=== PATIENT | female | born 1935 | race Caucasian/White ===

== ENCOUNTER 2020-04-27 09:37 | Outpatient (CLI) | payer MEDICARE, SELFPAY ==
--- NOTE | 2020-04-27 09:49 | ECHO_ITS ---
Patient Info Name: Janneth Sheldon Age: 84 years : 1935 Gender: Female Ht: 65 in Wt: 250 lbs BSA: 2.34 m2 HR: 91 bpm BP: 139 / 75 mmHg Technical Quality: Good Exam Date: 04/27/2020 10:04 AM Exam Location: [facility] Patient Status: Outpatient Admit Date: 04/27/2020 Staff Ordering Physician: Ziyad Mccauley MD Clinical Documentation Clerk: Jayde Rivera RDCS Attending Provider: Ziyad Mccauley MD Referring Physician: Parisa JHAVERI; Exam Type: CA echo doppler color flow Study Info Indications - heart failure Complete two-dimensional, color flow and Doppler transthoracic echocardiogram is performed. Summary 1. Complete two-dimensional, color flow and Doppler transthoracic echocardiogram is performed. 2. Left ventricular chamber dimension is normal. 3. Left ventricular systolic function is normal, estimated at 60-65%. 4. The left ventricular diastolic function is grade I diastolic dysfunction. 5. E/e' 12 is mildly elevated. 6. Left atrial chamber dimension is mildly enlarged. 7. There is moderate aortic valve sclerosis. 8. There is trace aortic valve regurgitation. 9. The mitral valve has moderately calcified annulus. 10. There is trace tricuspid valve regurgitation. 11. No pulmonary hypertension, estimated pulmonary arterial systolic pressure is 33 mmHg. 12. There is trace pulmonic regurgitation. 13. Small atheroma in anterior and posterior aortic root. 14. There is trivial pericardial effusion. Left Ventricle E/e' 12 is mildly elevated. Left ventricular chamber dimension is normal. Left ventricular systolic function is normal, estimated at 60-65%. The left ventricular diastolic function is grade I diastolic dysfunction. Right Ventricle Right ventricular chamber dimension is normal. Right ventricular systolic function is normal. Left Atria Left atrial chamber dimension is mildly enlarged. Right Atria Right atrial chamber dimension is normal. Aortic Valve The aortic valve is trileaflet. There is moderate aortic valve sclerosis. There is no aortic valve stenosis. There is trace aortic valve regurgitation. Pulmonic Valve There is trace pulmonic regurgitation. Mitral Valve The mitral valve has moderately calcified annulus. There is no mitral valve stenosis. There is no mitral valve regurgitation. Tricuspid Valve There is trace tricuspid valve regurgitation. No pulmonary hypertension, estimated pulmonary arterial systolic pressure is 33 mmHg. Pericardium/Pleural There is trivial pericardial effusion. Inferior Vena Cava Normal inferior vena cava with >50% collapse upon inspiration consistent with normal right atrial pressure, 5 mmHg. Aorta Small atheroma in anterior and posterior aortic root. The aortic root size at the sinus of Valsalva is normal. Left Ventricular Outflow Tract Name Value Normal LVOT 2D LVOT Diameter 2.1 cm LVOT Doppler LVOT Peak Gradient 5 mmHg LVOT Mean Gradient 3 mmHg LVOT VTI 33 cm LVOT VTI/AV VTI Ratio 0.5
== END 2020-04-27 09:38 | disposition home or self-care (01) ==
PROVIDERS: PCP Family Medicine; Visit Provider Family Medicine
DX: I50.9 Heart failure, unspecified (principal); I51.7 Cardiomegaly; I25.10 Atherosclerotic heart disease of native coronary artery without angina pectoris
CPT/HCPCS: 93306

== ENCOUNTER → 2020-05-02 16:35 | Outpatient (CLI) | payer MEDICARE, SELFPAY ==
--- NOTE | ~2020-05-02 | MM_ITS ---
EXAMINATION: MM screening ej BI w henrik HISTORY: Screening TECHNIQUE: Craniocaudal and mediolateral oblique 3-D tomosynthesis images were obtained and synthetic 2-D images were generated. CAD analysis was submitted and interpreted. COMPARISON: Comparison to multiple prior studies sequentially, with oldest reviewed study dated 06/20. BREAST PARENCHYMAL COMPOSITION: There are scattered areas of fibroglandular density. FINDINGS: There are developing calcifications in the upper outer quadrant of the left breast. The rig ht breast is stable without evidence for malignancy. IMPRESSION: 1. Developing nonspecific calcifications upper outer quadrant of the left breast. 2. Magnification views are recommended. BI-RADS Category 0: Incomplete: Needs additional imaging evaluation. Reviewed, dictated and finalized at location A. IMPRESSION: 1. Developing nonspecific calcifications upper outer quadrant of the left breas t. 2. Magnification views are recommended. BI-RADS Category 0: Incomplete: Needs additional imaging evaluation.
== END ==
PROVIDERS: PCP Family Medicine; Visit Provider Family Medicine
DX: Z12.31 Encounter for screening mammogram for malignant neoplasm of breast (principal)
CPT/HCPCS: 77063; 77067

== ENCOUNTER → 2020-05-22 09:04 | Outpatient (CLI) | payer MEDICARE, SELFPAY ==
--- NOTE | ~2020-05-22 | MM_ITS ---
EXAMINATION: MM diagnostic mammo unilat LT HISTORY: Follow-up left breast calcifications TECHNIQUE: Additional 3-D tomosynthesis images of the left breast were performed and synthetic 2-D im ages were generated. CAD analysis was submitted and interpreted. COMPARISON: Comparison to multiple prior studies sequentially, with oldest reviewed study dated 06/20. BREAST PARENCHYMAL COMPOSITION: Breast composed of scattered areas of fibroglandular density. FINDINGS: Scattered coarse calcifications upper outer quadrant of the left breast are likely benign. No suspicious masses or architectural distortion. IMPRESSION: 1. Probable benign left breast masses. 2. Recommend 6 month follow-up diagnostic left mammogram. BI-RADS category 3, probably benign findings. Reviewed, dictated and finalized at location A. ARY CARE COORDINATOR
== END ==
PROVIDERS: PCP Family Medicine; Visit Provider Family Medicine
DX: R92.8 Other abnormal and inconclusive findings on diagnostic imaging of breast (principal)
CPT/HCPCS: 77065

== ENCOUNTER 2020-05-22 10:56 | Emergency (ER) | payer MEDICARE, SELFPAY ==
--- NOTE | ~2020-05-22 | CT_ITS ---
EXAMINATION: CT brain wo con EXAM DATE: 05/22/2020 11:37 INDICATION: head injury . TECHNIQUE: Spiral CT of the head was performed without contrast. Axial, coronal and sagittal images were reviewed. The dose-length product (DLP) for this examination was 605.33 mGy-cm. The exposure w as tailored according to patient size, and iterative reconstruction (ASIR) was used as additional dos e reduction technique. Comparison is made to prior examination from 10/18/2008. FINDINGS: There is no acute intraparenchymal hemorrhage. No evidence of intraparenchymal brain mass lesion. No evidence of acute infarction. Please note that initial head CT has limited sensitivity f or small or acute infarctions. There is mild periventricular and subcortical hypodensity, nonspecific but probably related to small vessel ischemic disease. There is moderate prominence of the sulci a nd ventricles related to cerebral atrophy. There is intracranial carotid arteriosclerosis. There a re no extra-axial collections. There is no mass effect or midline shift. The orbits are unremarkabl e. There is moderate size hematoma at the left brow. The visualized sinuses and mastoid air cells ar e well aerated. IMPRESSION: 1. No acute intracranial findings. 2. Chronic age related findings. 3. Left brow contusion/hematoma. Reviewed, dictated and finalized at location B. NICAL SALES REPRESENTATIVES
--- NOTE | ~2020-05-22 | XR_ITS ---
EXAMINATION: XR knee LT min 4V EXAM DATE: 05/22/2020 11:45 INDICATION: left knee pain, fall TECHNIQUE: Left knee frontal, crosstable lateral, orthogonal oblique projections for interpretation. Comparison is made to prior examination from 10/18/2008. FINDINGS: No evidence osteochondral defect or joint body in the left knee joint. There is moderate primary osteoarthritis. There are no acute fractures or dislocations identified. There is no subcuta neous gas. Small joint effusion. There are no radiopaque foreign bodies. IMPRESSION: 1. XR knee LT min 4V exam without acute osseous findings. 2. Moderate osteoarthritis. 3. Small joint effusion. Reviewed, dictated and finalized at location B. GATHERER
--- NOTE | ~2020-05-22 | CT_ITS ---
EXAMINATION: CT facial & cervical spine wo EXAM DATE: 05/22/2020 11:37 INDICATION: head injury, black eye . TECHNIQUE: Spiral CT of the facial bones was acquired in the axial plane. Coronal reformatted images were also reviewed. Spiral CT of the cervical spine was performed without contrast. Axial images we re reviewed. Coronal and sagittal reformatted images were also reviewed. The dose-length product (DL P) for this examination was 442.45 mGy-cm. The exposure was tailored according to patient size, and iterative reconstruction (ASIR) was used as additional dose reduction technique. Comparison is made t o prior examination from 10/18/2008. FINDINGS: FACIAL CT: There are no displaced acute nasal bone fractures. The mandible, sinuses and orbits are i ntact. The orbits, globes and extraocular muscles are unremarkable. The visualized sinuses and ma stoid air cells are well aerated. There is moderate-sized hematoma/contusion over the left supraorb ital region, brow. CERVICAL CT: There is no evidence of acute cervical fracture. The odontoid process is intact. Pre-d ens space is normal. Prevertebral soft tissue is normal. There are no soft tissue abnormalities kai ntified. There is no disc space widening or traumatic vertebral body subluxation suspected. There i s moderate lower cervical disc disease and some advanced cervical arthropathy. A detailed level by eli sun evaluation of spondylosis can be added as addendum if requested. IMPRESSION: 1. No acute facial or cervical fracture. 2. Left brow scalp contusion/hematoma. Reviewed, dictated and finalized at location B. RUCTOR FLYING
--- NOTE | ~2020-05-22 | CT_ITS ---
EXAMINATION: CT thoracic lumbar wo con EXAM DATE: 05/22/2020 11:37 INDICATION: mid-low back pain, fall. TECHNIQUE: Spiral CT thoracolumbar spine was performed without contrast. Axial, coronal and sagittal images of the thoracic spine were reviewed. Axial, coronal and sagittal images of the lumbar spine we re reviewed. The dose-length product (DLP) for this examination was 2106.40 mGy-cm. The exposure was tailored according to patient size (auto mA exposure control), and iterative reconstruction (ASIR) w as used as additional dose reduction technique. There is no prior study for comparison. FINDINGS: THORACIC SPINE: Moderate mid and lower thoracic disc disease and moderate sized bridging endplate ost eophytes. There are no acute fractures identified. The vertebral bodies are aligned in the AP dimensi on. Vertebral body heights relatively well-maintained. Paraspinal soft tissue is unremarkable. LUMBAR SPINE: Sacroiliac joints, sacrum intact. Moderate aortic arterial sclerosis. No retroperitonea l lymphadenopathy or hydronephrosis. There is no evidence of acute lumbar fracture. There is no dis c space widening or traumatic vertebral body subluxation suspected. There is 2-3 mm degenerative ante rolisthesis L3 on L4. Paraspinal soft tissue is unremarkable. Moderate lower lumbar disc disease and facet arthropathy. A detailed level by level evaluation of spondylosis can be added as addendum if r equested. IMPRESSION: 1. No acute thoracolumbar findings. 2. Spondylosis. Reviewed, dictated and finalized at location B. NG TECHNICIAN
--- NOTE | ~2020-05-22 | XR_ITS ---
EXAMINATION: XR hip LT min 3V w AP pelvis EXAM DATE: 05/22/2020 11:45 INDICATION: Initial encounter following injury, with pain of the pelvis, left hip. TECHNIQUE: Left hip frontal, crosstable lateral and 'frog-leg' projections for interpretation. Fronta l projection pelvis. There is no prior study for comparison. FINDINGS: Smooth left hip femoral head contour, no radiographic evidence of avascular necrosis. Ther e is mild symmetric bilateral hip primary osteoarthritis. There are no acute fractures or dislocation s identified. There is no subcutaneous gas. The soft tissue is unremarkable. There are no radiopa que foreign bodies. IMPRESSION: 1. Pelvic, left hip exam without acute osseous findings. Reviewed, dictated and finalized at location B. MATOR AND DRAFTER SUPERVISOR
[2020-05-22 11:01] VITALS: BP 153/72; PULSE 84; RESP 16; TEMP 36; O2SAT 99
[2020-05-22 11:12] VITALS: O2SAT 99
--- NOTE | 2020-05-22 11:15 | ED.HEATRA ---
HPI - Head Injury General Chief complaint: Head Injury Stated complaint: Head Injury, Fall Time Seen by Provider: 05/22/20 11:02 Source: patient Mode of arrival: wheelchair Limitations: no limitations History of Present Illness HPI Narrative: This is an 84-year-old female that presents the emergency department after a fall today with head injury. Reports she tripped over a rug and fell forward onto tile. Reports hitting her head. Denies loss of consciousness. Reports a black eye and left leg pain. Reports she was able to walk after the fall, but with some pain in the left leg. Also reports neck and back pain. Denies vision changes, chest pain, vomiting, numbness, or weakness. Related Data Home Medications Medication Instructions Recorded Confirmed aspirin 81 mg tablet,delayed 81 mg PO DAILY 06/15/19 release solifenacin 10 mg tablet 10 mg PO DAILY 06/15/19 calcium carbonate 600 mg calcium 600 mg PO DAILY 10/19/19 (1,500 mg) tablet cholecalciferol (vitamin D3) 25 25 mcg PO DAILY 10/19/19 mcg (1,000 unit) capsule naproxen sodium 220 mg capsule 440 mg PO DAILY cap 10/19/19 Allergies Allergy/AdvReac Type Severity Reaction Status Date / Time Penicillins Allergy Unknown itching Verified 04/04/20 10:23 Review of Systems Review of Systems: Narrative: CONSTITUTIONAL: Denies fever EYES: Denies visual changes CARDIOVASCULAR: Denies chest pain RESPIRATORY: Denies dyspnea. GASTROINTESTINAL: Denies vomiting MUSCULOSKELETAL: Reports back pain, joint pain, and myalgia. NEUROLOGIC: Denies headache, numbness, or weakness. All systems reviewed & are unremarkable except as noted in HPI and below [facility] Past Medical History Medical History (Updated 05/22/20 @ 12:16 by Praveena Beebe PA-C) Aortic stenosis Essential (primary) hypertension Lymphedema Mixed hyperlipidemia Surgical History Surgical History Cataract extraction status BOTH EYES JUN 2019-RIGHT MAY 2019- LEFT H/O: hysterectomy History of appendectomy Family History Family History Father Acute myocardial infarction, Onset Age: 73 Mother Family history of malignant neoplasm of breast in first degree relative, Onset Age: 73 Social History Social History Smoking status: Never smoker Alcohol intake: never Exam Narrative: Exam Narrative: GENERAL: Elderly, well-nourished, and in no acute distress. HEAD: Normocephalic. Ecchymosis of the left upper and lower eyelid EYES: PERRLA and EOMI. ENT: Nares clear, no rhinorrhea or epistaxis. Mucous membranes moist. Oropharynx without tonsillar hypertrophy exudate or other lesions. Bilateral TMs pearly mckeon non-bulging NECK: Supple. No adenopathy or masses. CHEST: Clear to auscultation. No respiratory distress. No wheezes rales or rhonchi HEART: Regular rate and rhythm. No murmur heard. Normal peripheral pulses. ABDOMEN: Soft, nontender, nondistended, normal active bowel sounds. BACK: Tender to palpation of midline thoracic and lumbar spine EXTREMITIES: Normal range of motion. No edema or obvious deformity. SKIN: Warm, dry, no rash. NEURO: No focal deficits. Alert and oriented x3. Cranial nerves II through XII grossly intact PSYCH: Normal mood and affect Course Vital Signs Vital signs: Vital Signs Temperature 96.8 F L 05/22/20 11:01 Pulse Rate 84 05/22/20 11:01 Respiratory Rate 16 05/22/20 11:01 Blood Pressure 153/72 H 05/22/20 11:01 Pulse Oximetry 99 05/22/20 11:01 Temperature 96.8 F L 05/22/20 11:01 Pulse Rate 84 05/22/20 11:01 Respiratory Rate 16 05/22/20 11:01 Blood Pressure 153/72 H 05/22/20 11:01 Pulse Oximetry 99 05/22/20 11:12 MDM - Head Injury MDM Narrative Medical decision making narrative: Patient presents to the emergency department for fall today with he
[2020-05-22 12:54] VITALS: BP 140/82; PULSE 80; RESP 19; TEMP 36.7; O2SAT 100
== END 2020-05-22 12:55 | disposition home or self-care (01) ==
PROVIDERS: Emergency Provider Emergency Medicine; PCP Family Medicine
DX: S83.92XA Sprain of unspecified site of left knee, initial encounter (principal); S09.90XA Unspecified injury of head, initial encounter; I10 Essential (primary) hypertension; E78.5 Hyperlipidemia, unspecified; I35.0 Nonrheumatic aortic (valve) stenosis; W01.0XXA Fall on same level from slipping, tripping and stumbling without subsequent striking against object, initial encounter
CPT/HCPCS: 70450; 70486; 72125; 72128; 72131; 73502; 73564; 99284

== ENCOUNTER 2020-06-03 16:09 | Emergency (ER) | payer MEDICARE, SELFPAY ==
--- NOTE | ~2020-06-03 | XR_ITS ---
EXAMINATION: XR hand LT min 3V EXAM DATE: 06/03/2020 16:29 INDICATION: Fall, several days ago, injury ing lt hand bruising . Initial encounter. TECHNIQUE: Left hand frontal, lateral and oblique projections obtained and reviewed. There is no terri or study for comparison. FINDINGS: Left metacarpal bones are unremarkable. There is severe 1st carpometacarpal and 3rd distal interphalangeal primary osteoarthritis. There are no acute fractures or dislocations identified. Th ere is no subcutaneous gas. The soft tissue is unremarkable. There are no radiopaque foreign jenny s. IMPRESSION: 1. Left hand exam without acute osseous findings. Reviewed, dictated and finalized at location A. ESSOR OF FORESTRY
[2020-06-03 16:21] VITALS: BP 151/66; PULSE 83; RESP 18; TEMP 36.3; O2SAT 99
[2020-06-03 16:23] VITALS: BP 151/66; PULSE 83; RESP 18; TEMP 36.3; O2SAT 99
--- NOTE | 2020-06-03 16:51 | ED.UPPEXIN ---
HPI - Extremity Injury (Upper) General Chief Complaint: Extremity Injury, Upper Stated Complaint: Left Hand Pain Time Seen by Provider: 06/03/20 16:35 Source: patient and RN notes reviewed Mode of arrival: ambulatory Limitations: no limitations History of Present Illness HPI narrative: Patient presents today complaining of pain to her left hand. She initially fell on 05/22/2020 after a trip on a rug and fall onto the tile. She was subsequently seen in the ER at [facility] where multiple CT scans and x-rays were performed, and were all negative. At that time, she did not have complaints of the hand injury and no imaging was done on this part of her body. She now states she has been having pain in this area for the past 3 to 4 days, but denies any additional injury since the initial fall on 05/22/2020. Denies numbness or tingling in the arm or hand. States she takes Aleve daily for her arthritis pain. Denies pain at rest, but states her pain increases to 10/10 when she uses her hand to take off her clothing or if she spreads her fingers wide. MD complaint: injury to: hand Related Data Home Medications Medication Instructions Recorded Confirmed aspirin 81 mg tablet,delayed 81 mg PO DAILY 06/15/19 06/03/20 release solifenacin 10 mg tablet 10 mg PO DAILY 06/15/19 06/03/20 calcium carbonate 600 mg calcium 600 mg PO DAILY 10/19/19 06/03/20 (1,500 mg) tablet cholecalciferol (vitamin D3) 25 25 mcg PO DAILY 10/19/19 06/03/20 mcg (1,000 unit) capsule naproxen sodium 220 mg capsule 440 mg PO DAILY cap 10/19/19 06/03/20 Allergies Allergy/AdvReac Type Severity Reaction Status Date / Time Penicillins Allergy Unknown itching Verified 06/03/20 16:21 Review of Systems Review of Systems: Narrative: CONSTITUTIONAL: Denies body aches, fever, chills, or sweats. EYES: Denies visual changes, redness, or discharge. ENT: Denies rhinorrhea, congestion, sore throat, or otalgia. CARDIOVASCULAR: Denies chest pain, palpitations, or edema. RESPIRATORY: Denies cough or dyspnea. GASTROINTESTINAL: Denies abdominal pain, nausea, vomiting, or diarrhea. GENITOURINARY: Denies dysuria or hematuria. SKIN: Denies rash, itching, or wounds. MUSCULOSKELETAL: Denies back pain, or myalgia. + Left hand injury NEUROLOGIC: Denies headache, numbness, tingling, or weakness. PSYCH: Denies depression or anxiety. [facility] Past Medical History Medical History (Updated 06/03/20 @ 16:52 by Gill Valentine, [facility], ) Aortic stenosis Essential (primary) hypertension Lymphedema Mixed hyperlipidemia Surgical History Surgical History Cataract extraction status BOTH EYES JUN 2019-RIGHT MAY 2019- LEFT H/O: hysterectomy History of appendectomy Family History Family History Father Acute myocardial infarction, Onset Age: 73 Mother Family history of malignant neoplasm of breast in first degree relative, Onset Age: 73 Social History Social History Smoking status: Never smoker Alcohol intake: never Comments At time of signature, I have reviewed and agree with nursing past medical, surgical, social and family history unless otherwise noted. Please see nursing chart for further information. There is no relevant family history pertinent to the presenting complaint Exam Narrative: Exam Narrative: GENERAL: Well-appearing, well-nourished, and in no acute distress. HEAD: Normocephalic, atraumatic. EYES: EOMI. No redness or drainage. Conjunctivae normal. ENT: Mucous membranes pink and moist. NECK: Normal AROM. CHEST: No respiratory distress. EXTREMITIES: Left hand: Healing ecchymosis to the bases of fingers 3 through 5 with tenderness to the same area. No edema noted. Distal sensation intact. Capillary refill normal. Radial pulse normal. Full range of mot
== END 2020-06-03 16:54 | disposition home or self-care (01) ==
PROVIDERS: Emergency Provider Nurse Practitioner; PCP Family Medicine
DX: S60.222A Contusion of left hand, initial encounter (principal); X58.XXXA Exposure to other specified factors, initial encounter; I10 Essential (primary) hypertension; E78.2 Mixed hyperlipidemia; I35.0 Nonrheumatic aortic (valve) stenosis; Z79.82 Long term (current) use of aspirin
CPT/HCPCS: 73130; 99213; G0463

== ENCOUNTER 2020-10-01 09:26 | Outpatient (CLI) | payer MEDICARE, SELFPAY | END 2020-10-01 09:27 | LOC: ANHCOVIDVC 09:26 | PROVIDERS: PCP Family Medicine | DX: Z23 Encounter for immunization (principal) | CPT/HCPCS: 0001A; 91300 ==

== ENCOUNTER 2020-10-22 09:26 | Outpatient (CLI) | payer MEDICARE, SELFPAY | END 2020-10-22 09:27 | disposition home or self-care (01) | LOC: ANHCOVIDVC 09:26 | PROVIDERS: PCP Family Medicine | DX: Z23 Encounter for immunization (principal) | CPT/HCPCS: 0002A; 91300 ==

== ENCOUNTER → 2020-10-27 00:54 | Outpatient (CLI) | payer MEDICARE, SELFPAY ==
[2020-10-27 18:53] LABS: SARS-CoV-2 RNA PCR Negative
== END ==
PROVIDERS: PCP Family Medicine; Visit Provider Internal Medicine Gastroenterology
DX: Z01.812 Encounter for preprocedural laboratory examination (principal); Z20.822 Contact with and (suspected) exposure to COVID-19
CPT/HCPCS: C9803; U0003; U0005

== ENCOUNTER 2020-10-31 02:15 | Day surgery (SDC) | payer MEDICARE, SELFPAY ==
[2020-10-19 13:48] VITALS: BMI 41.6
[2020-10-31 10:45] VITALS: BP 149/69; PULSE 85; RESP 18; TEMP 36.3; O2SAT 99; BMI 42.2
[2020-10-31] MEDS: LACTATED RINGERS 1,000 ML 150 ML IV CONT (11:01)
--- NOTE | 2020-10-31 11:14 | WPDANESEPPF ---
Anes - Initial Pre Proc Eval Procedure: Operation Date: 10/31/20 12:00 Proposed Procedures p Colonoscopy - Rick Cha MD Date/Time: 10/31/20 11:14 Surgeon: Rick Cha MD Pre Op Diagnosis: positive cologuard Patient Data Age: 84 Gender: F Height: 5 ft 5 in Weight: 115.1 kg Last Vital Signs Temp 97.3 F L 10/31/20 10:45 Pulse 85 10/31/20 10:45 Resp 18 10/31/20 10:45 BP 149/69 H 10/31/20 10:45 Pulse Ox 99 10/31/20 10:45 Allergies Allergy/AdvReac Type Severity Reaction Status Date / Time Penicillins Allergy Unknown itching Verified 10/31/20 11:02 Home Medications Medication Instructions Recorded Confirmed Type aspirin 81 mg tablet,delayed 81 mg PO DAILY 06/15/19 10/31/20 History release calcium carbonate 600 mg calcium 600 mg PO DAILY 10/19/19 10/31/20 History (1,500 mg) tablet cholecalciferol (vitamin D3) 25 25 mcg PO DAILY 10/19/19 10/31/20 History mcg (1,000 unit) capsule furosemide 40 mg tablet 40 mg PO QAM #90 tablet 10/19/19 10/31/20 Rx naproxen sodium 220 mg capsule 440 mg PO DAILY cap 10/19/19 10/31/20 History lisinopril 20 1 tablet PO DAILY #90 tablet 10/31/19 10/31/20 Rx mg-hydrochlorothiazide 25 mg tablet mirabegron 50 mg tablet,extended 25 mg PO DAILY #28 tablet 04/04/20 10/31/20 Rx release 24 hr solifenacin 10 mg tablet 10 mg PO DAILY #90 tablet 08/20/20 10/19/20 Rx sod picosulf 10 mg-magnes 3.5 160 ml PO BID #160 ml 10/10/20 10/31/20 Rx gram-citric 12 gram/160 mL oral solution Patient hx anesthesia problems: none Family hx anesthesia problems: none PMFSH Past Medical History Medical History (Updated 09/24/20 @ 09:40 by Ziyad Mccauley MD) Aortic stenosis Contusion of eyebrow Essential (primary) hypertension Lymphedema Mixed hyperlipidemia Muscle strain, upper arm Rotator cuff strain Sprain of cervical neck Surgical History Surgical History Cataract extraction status BOTH EYES JUN 2019-RIGHT MAY 2019- LEFT H/O: hysterectomy History of appendectomy Family History Family History Father Acute myocardial infarction, Onset Age: 73 Mother Family history of malignant neoplasm of breast in first degree relative, Onset Age: 73 Social History Social History Smoking status: Never smoker Alcohol intake: never Substance use: never Substance use type: does not use Living arrangements: with family Gender identity (if verbalized by the patient): Female Spiritual care concerns: No Anes - Eval Final PreProcedure Day of Procedure 10/31/20 11:14 Patient weight: morbidly obese Heart: regular rate and rhythm and murmur Lungs: clear to auscultation Airway: Mallampati scale class III Neurological: alert and oriented Last oral intake: >/= 8 hours ASA classification: IV Emergent: no Anesthetic plan: proceed Anesthesia type and monitoring: general GIVS and standard monitoring Informed Consent: The patient's anesthetic plan and its attendant risks and benefits were discussed with the patient/family/POA. Questions were solicited and answers provided to the satisfaction of the patient/family/POA.
--- NOTE | 2020-10-31 12:01 | PM.HPGS ---
History of Present Illness History of Present Illness Consent: Risks, benefits, and alternatives have been discussed and questions answered. Patient agrees to proceed with procedure. Chief complaint: positive cologuard Narrative: Janneth Sheldon is a 84 year old female here for first colonoscopy, she was found to have hb 10 which prompted cologuard that was positive. Denies overt gib Review of Systems Constitutional: Constitutional: Denies headache(s) and Denies weakness Eyes: Eyes: Denies blurry vision ENT: Reports Normal hearing present, Denies headache(s) and Denies neck pain Cardiovascular: Cardiovascular: Denies chest pain and Denies dyspnea Respiratory: Respiratory: Denies dyspnea Gastrointestinal: Gastrointestinal: Reports no additional gastrointestinal complaints Genitourinary: Genitourinary: Denies dysuria Musculoskeletal: Musculoskeletal: Denies neck pain Integumentary/Breasts: Skin/Breast: Denies dry skin Neurologic: Reports Normal hearing present, Denies headache(s) and Denies weakness Psychiatric: Psychiatric: Denies anxiety Endocrine: Endocrine: Denies change in body appearance Hematologic/Lymphatic: Hematologic/Lymphatic: Denies easy bleeding Allergic/Immunologic: Allergic/Immunologic: Denies urticaria PMFSH Past Medical History Medical History (Updated 10/31/20 @ 12:02 by Rick Cha MD) Aortic stenosis Contusion of eyebrow Essential (primary) hypertension Lymphedema Mixed hyperlipidemia Muscle strain, upper arm Positive colorectal cancer screening using Cologuard test Rotator cuff strain Sprain of cervical neck Surgical History Surgical History Cataract extraction status BOTH EYES JUN 2019-RIGHT MAY 2019- LEFT H/O: hysterectomy History of appendectomy Family History Family History Father Acute myocardial infarction, Onset Age: 73 Mother Family history of malignant neoplasm of breast in first degree relative, Onset Age: 73 Social History Social History Smoking status: Never smoker Alcohol intake: never Substance use: never Substance use type: does not use Living arrangements: with family Gender identity (if verbalized by the patient): Female Spiritual care concerns: No Meds Home Medications and Allergies Home Medications Medication Instructions Recorded Confirmed Type aspirin 81 mg tablet,delayed 81 mg PO DAILY 06/15/19 10/31/20 History release calcium carbonate 600 mg calcium 600 mg PO DAILY 10/19/19 10/31/20 History (1,500 mg) tablet cholecalciferol (vitamin D3) 25 25 mcg PO DAILY 10/19/19 10/31/20 History mcg (1,000 unit) capsule furosemide 40 mg tablet 40 mg PO QAM #90 tablet 10/19/19 10/31/20 Rx naproxen sodium 220 mg capsule 440 mg PO DAILY cap 10/19/19 10/31/20 History lisinopril 20 1 tablet PO DAILY #90 tablet 10/31/19 10/31/20 Rx mg-hydrochlorothiazide 25 mg tablet mirabegron 50 mg tablet,extended 25 mg PO DAILY #28 tablet 04/04/20 10/31/20 Rx release 24 hr solifenacin 10 mg tablet 10 mg PO DAILY #90 tablet 08/20/20 10/19/20 Rx sod picosulf 10 mg-magnes 3.5 160 ml PO BID #160 ml 10/10/20 10/31/20 Rx gram-citric 12 gram/160 mL oral solution Allergies Allergy/AdvReac Type Severity Reaction Status Date / Time Penicillins Allergy Unknown itching Verified 10/31/20 11:02 Vital Signs Vital Signs - 24 hr 10/31/20 10:45 Temperature 97.3 F L Pulse Rate 85 Respiratory Rate 18 Blood Pressure 149/69 H Pulse Oximetry 99 Exam Const: General: comfortable and no acute distress HENMT: General nose exam: Normal nares present Eyes: General: appearance normal, both eyes and all related structures Neck: Neck: no JVD Resp: Auscultation: clear to auscultation bilaterally Cardio: Rate: regular rate
[2020-10-31 12:33] VITALS: BP 89/65; PULSE 78; RESP 13; O2SAT 98
[2020-10-31 12:43] VITALS: BP 125/61; PULSE 78; RESP 13; O2SAT 99
[2020-10-31 12:53] VITALS: BP 134/79; PULSE 75; RESP 12; O2SAT 99
== END 2020-10-31 13:08 | disposition home or self-care (01) ==
PROVIDERS: PCP Family Medicine; Visit Provider Internal Medicine Gastroenterology
PROC: 0DJD8ZZ Inspection of Lower Intestinal Tract, Via Natural or Artificial Opening Endoscopic (ICD-10-PCS; CPT 45378; principal; 2020-10-31 12:00)
DX: R19.5 Other fecal abnormalities (principal); D12.2 Benign neoplasm of ascending colon; K63.5 Polyp of colon; K57.30 Diverticulosis of large intestine without perforation or abscess without bleeding; K64.8 Other hemorrhoids; D63.8 Anemia in other chronic diseases classified elsewhere; I10 Essential (primary) hypertension; E78.2 Mixed hyperlipidemia; I35.0 Nonrheumatic aortic (valve) stenosis; Z79.82 Long term (current) use of aspirin; E66.01 Morbid (severe) obesity due to excess calories; Z68.41 Body mass index [BMI] 40.0-44.9, adult
CPT/HCPCS: 45385; 88305; C9803; J2704; J7120; U0003; U0005

== ENCOUNTER 2021-04-01 06:59 | Outpatient (CLI) | payer MEDICARE, SELFPAY ==
--- NOTE | 2021-04-01 07:24 | ECHO_ITS ---
Patient Info Name: Janneth Sheldon Age: 85 years : 1935 Gender: Female Ht: 65 in Wt: 250 lbs BSA: 2.34 m2 HR: 80 bpm BP: 169 / 90 mmHg Technical Quality: Good Exam Date: 04/01/2021 7:37 AM Exam Location: [facility] Patient Status: Outpatient Admit Date: 04/01/2021 Staff Ordering Physician: Ziyad Mccauley MD Banner Painter: Batsheva Kay RDCS Attending Provider: Ziyad Mccauley MD Referring Physician: Parisa JHAVERI; Exam Type: CA echo doppler color flow Study Info Indications R01.1 - Cardiac murmur, unspecified Complete two-dimensional, color flow and Doppler transthoracic echocardiogram is performed. Summary 1. Complete two-dimensional, color flow and Doppler transthoracic echocardiogram is performed. 2. Left ventricular chamber dimension is normal. 3. Left ventricular systolic function is normal, estimated at 60-65%. 4. There is mildly increased left ventricular wall thickness. 5. The left ventricular diastolic function is grade II diastolic dysfunction. 6. E/e' 17 is elevated. 7. Global longitudinal strain is normal at -17.8%. 8. Left atrial chamber dimension is mildly enlarged. 9. There is moderate aortic valve sclerosis. 10. There is mild aortic valve stenosis with a peak velocity of 275 cm/s, mean gradient of 16 mmHg, and aortic valve area of 1.5 cm2. 11. There is mild aortic valve regurgitation. 12. The mitral valve has moderately calcified annulus. 13. There is mild mitral valve regurgitation. 14. There is trace tricuspid valve regurgitation. 15. No pulmonary hypertension, estimated pulmonary arterial systolic pressure is 39 mmHg. Left Ventricle E/e' 17 is elevated. Global longitudinal strain is normal at -17.8%. Left ventricular chamber dimension is normal. Left ventricular systolic function is normal, estimated at 60-65%. There is mildly increased left ventricular wall thickness. The left ventricular diastolic function is grade II diastolic dysfunction. Right Ventricle Right ventricular systolic function is normal and with normal TAPSE 2.3 cm. Right ventricular chamber dimension is normal. Left Atria Left atrial chamber dimension is mildly enlarged. Right Atria Right atrial chamber dimension is normal. Aortic Valve The aortic valve is trileaflet. There is moderate aortic valve sclerosis. There is mild aortic valve stenosis with a peak velocity of 275 cm/s, mean gradient of 16 mmHg, and aortic valve area of 1.5 cm2. There is mild aortic valve regurgitation. Pulmonic Valve There is no pulmonic regurgitation. Mitral Valve The mitral valve has moderately calcified annulus. There is no mitral valve stenosis. There is mild mitral valve regurgitation. Tricuspid Valve There is trace tricuspid valve regurgitation. No pulmonary hypertension, estimated pulmonary arterial systolic pressure is 39 mmHg. Pericardium/Pleural There is no pericardial effusion. Inferior Vena Cava Normal inferior vena cava with >50% collapse upon inspiration consistent with normal right atrial pressure, 5 mmHg. Aorta The aortic root size at the sinus of Valsalva is normal. Left Ventricular Outflow Tract Name Value Normal LVOT 2D LVOT Diameter 2.0 cm
== END 2021-04-01 07:00 | disposition home or self-care (01) ==
LOC: ANHCARD 07:00
PROVIDERS: PCP Family Medicine; Visit Provider Family Medicine
DX: R01.1 Cardiac murmur, unspecified (principal); I34.0 Nonrheumatic mitral (valve) insufficiency; I35.1 Nonrheumatic aortic (valve) insufficiency
CPT/HCPCS: 93306

== ENCOUNTER 2022-12-31 16:36 | Outpatient (CLI) | payer MEDICARE, SELFPAY ==
--- NOTE | 2022-12-31 | ECHO_ITS ---
Patient Info Name: Janneth Sheldon Age: 87 years : 1935 Gender: Female Accession #: $[id number]$ Ht: 65 in Wt: 250 lbs BSA: 2.34 m2 HR: 72 bpm BP: 121 / 76 mmHg Heart Rhythm: Sinus Rhythm Exam Date: 12/31/2022 1:01 PM Exam Location: [facility] [employer] Engagement Planning Operator: Yasir Qureshi RDCS Exam Type: CA echo doppler color flow Study Info Indications I35.0 - Nonrheumatic aortic (valve) stenosis Complete two-dimensional, color flow and Doppler transthoracic echocardiogram is performed. Summary 1. Complete two-dimensional, color flow and Doppler transthoracic echocardiogram is performed. 2. Left ventricular chamber dimension is normal. 3. There is moderately increased left ventricular wall thickness. 4. Left ventricular systolic function is normal, estimated at 65-70%. 5. The left ventricular diastolic function is grade I diastolic dysfunction. 6. Right ventricular systolic function is normal. 7. Left atrial chamber dimension is severely enlarged. 8. There is moderate aortic valve calcification. 9. There is mild aortic valve stenosis with a peak velocity of 245 cm/s, mean gradient of 13 mmHg, and aortic valve area of 1.4 cm2. 10. The mitral valve annulus is severely calcified. 11. There is trace mitral valve regurgitation. 12. There is mild tricuspid valve regurgitation. 13. The aortic root size at the sinus of Valsalva is mildly dilated. 14. There is small anterior pericardial effusion. Left Ventricle Left ventricular chamber dimension is normal. Left ventricular systolic function is normal, estimated at 65-70%. There is moderately increased left ventricular wall thickness. The left ventricular diastolic function is grade I diastolic dysfunction. Right Ventricle Right ventricular chamber dimension is normal. Right ventricular systolic function is normal. Left Atria Left atrial chamber dimension is severely enlarged. Right Atria Right atrial chamber dimension is normal. Atrial Septum Intact interatrial septum visualized by color flow imaging. Aortic Valve The aortic valve is probable trileaflet. There is mild aortic valve stenosis with a peak velocity of 245 cm/s, mean gradient of 13 mmHg, and aortic valve area of 1.4 cm2. There is no aortic valve regurgitation. There is moderate aortic valve calcification. Pulmonic Valve The pulmonic valve is not well visualized. Mitral Valve There is no mitral valve stenosis. There is trace mitral valve regurgitation. The mitral valve annulus is severely calcified. Tricuspid Valve There is mild tricuspid valve regurgitation. Pericardium/Pleural There is small anterior pericardial effusion. Inferior Vena Cava Normal inferior vena cava with >50% collapse upon inspiration consistent with normal right atrial pressure, 3 mmHg. Aorta The aortic root size at the sinus of Valsalva is mildly dilated. Left Ventricular Outflow Tract Name Value Normal LVOT 2D LVOT Diameter 2.0 cm LVOT Doppler LVOT Peak Gradient 4 mmHg LVOT Mean Gradient 2 mmHg LVOT VTI 23 cm LVOT VTI/AV VTI Ratio 0.4 LVOT Stroke Volume 72 ml LVOT CO 4.2 l/min
--- NOTE | 2023-01-01 12:31 | PCCARD ---
Paper documentation exists on this patient due to [employer] [facility] downtime on 12/31/22 from 0030to [] 1930.
--- NOTE | 2023-01-01 12:33 | PCCARD ---
Paper documentation exists on this patient due to [employer] System downtime on 12/31/22 from 0030 to [] 1930.
== END 2022-12-31 16:37 | disposition home or self-care (01) ==
LOC: ANHCARD 16:37
PROVIDERS: PCP Family Medicine; Visit Provider Family Medicine
DX: I35.0 Nonrheumatic aortic (valve) stenosis (principal); I36.1 Nonrheumatic tricuspid (valve) insufficiency
CPT/HCPCS: 93306

== ENCOUNTER 2023-03-30 12:24 | Outpatient (CLI) | payer MEDICARE, SELFPAY ==
--- NOTE | ~2023-03-30 | XR_ITS ---
XR knee RT 3V 03/30/2023 13:28 Indication: Right knee pain Procedure: 3 views right knee Comparison: No prior studies Findings: There is moderate tricompartment osteoarthritis. There is a small joint effusion. Osteopeni a. No fracture or traumatic malalignment. No foreign bodies. Impression: 1: Moderate osteoarthritis of the right knee. Reviewed, dictated and finalized at location B. Impression: 1: Moderate osteoarthritis of the right knee.
--- NOTE | ~2023-03-30 | US_ITS ---
EXAMINATION: US venous doppler LE RT DATE: 03/30/2023 13:20 INDICATION: Right lower limb pain. TECHNIQUE: Grayscale ultrasound images without and with compression and Doppler ultrasound images of the right lower extremity veins were obtained. COMPARISON: None. FINDINGS: The visualized portions of right common femoral vein, profunda (deep) femoral vein, posterior tibial veins, and greater saphenous vein outflow are patent. There is thrombus in the right femoral and popl iteal veins. IMPRESSION: 1. Deep vein thrombosis involving the right femoral and popliteal veins. Reviewed, dictated and finalized at location A.
== END 2023-03-30 12:25 | disposition home or self-care (01) ==
LOC: ANHLAB 12:29 → ANHIMG 12:34
PROVIDERS: PCP Family Medicine; Visit Provider Nurse Practitioner
DX: M17.11 Unilateral primary osteoarthritis, right knee (principal); I82.431 Acute embolism and thrombosis of right popliteal vein; I82.411 Acute embolism and thrombosis of right femoral vein
CPT/HCPCS: 73562; 93971

== ENCOUNTER 2023-04-20 10:48 | Outpatient (CLI) | payer MEDICARE, SELFPAY ==
[2023-04-20 13:14] LABS: Hematocrit 36.1 % (37.0-47.0); Hemoglobin 11.4 g/dL (12.0-15.0); Mean Corpuscular HGB Conc 31.6 g/dl (32-36); Mean Corpuscular Hemoglobin 30.4 pg (26-34); Mean Corpuscular Volume 96.3 fl (80-100); Mean Platelet Volume 12.4 fl (7.4-10.4); Platelet Count Result 244 k/mm3 (150-375); Red Blood Count 3.75 M/mm3 (4.2-5.4); Red Cell Distribution Width 14.1 % (11.5-14.5); White Blood Count 8.5 K/mm3 (4.5-10.0)
[2023-04-20 13:18] LABS: Alanine Aminotransferase 12 U/L (6-35); Alkaline Phosphatase 46 U/L (38-126); Anion Gap 8 mmol/L (8-16); Aspartate Amino Transferase 30 U/L (14-36); Bilirubin,Total 0.8 mg/dL (0.2-1.3); Blood Urea Nitrogen 39 mg/dL (7-17); Carbon Dioxide 30 mmol/L (22-30); Chloride 100 mmol/L (98-107); Cholesterol 158 mg/dL (0-200); Estimated Glomerular Filt Rate 47; Glucose 105 mg/dL (65-110); HDL Direct 34 mg/dL; Potassium 4.3 mmol/L (3.4-5.0); Sodium 138 mmol/L (137-145); Triglycerides 233 mg/dL (<150)
[2023-04-20 13:30] LABS: LDL Cholesterol Direct 76 mg/dL
== END 2023-04-20 10:49 | disposition home or self-care (01) ==
PROVIDERS: PCP Family Medicine; Visit Provider Family Medicine
DX: E66.01 Morbid (severe) obesity due to excess calories (principal); D63.8 Anemia in other chronic diseases classified elsewhere; E78.2 Mixed hyperlipidemia; I10 Essential (primary) hypertension
CPT/HCPCS: 36415; 80053; 80061; 84443; 85027

== ENCOUNTER 2023-06-30 12:22 | Outpatient (CLI) | payer MEDICARE, SELFPAY ==
--- NOTE | ~2023-06-30 | US_ITS ---
EXAMINATION:US venous doppler LE RT INDICATION:Right leg swelling. History of deep venous thrombosis. TECHNIQUE: Multiple grayscale, color flow and Doppler images of the right lower extremity deep venous systems were obtained and reviewed. COMPARISON:03/30/2023 FINDINGS: There is persistent deep venous thrombosis of the right femoral and popliteal veins. The re mainder of the right lower extremity veins are patent although the right peroneal and greater sapheno us veins are not visualized due to patient body habitus. 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 Reviewed, dictated and finalized at location A. NEER SECOND ASSISTANT
== END 2023-06-30 12:23 | disposition home or self-care (01) ==
PROVIDERS: PCP Family Medicine; Visit Provider Nurse Practitioner
DX: I82.411 Acute embolism and thrombosis of right femoral vein (principal); I82.431 Acute embolism and thrombosis of right popliteal vein; M79.89 Other specified soft tissue disorders
CPT/HCPCS: 93971

== ENCOUNTER 2023-07-22 11:23 | Outpatient (CLI) | payer MEDICARE, SELFPAY ==
--- NOTE | ~2023-07-22 | US_ITS ---
EXAMINATION: US carotid duplex BI DATE: 07/22/2023 12:03 INDICATION: Plaque seen on x-ray TECHNIQUE: Grayscale, color Doppler, and pulsed Doppler images of the cervical carotid arteries were obtained. The degree of vessel stenosis is placed in one of the following categories: normal, <50%, 5 0-69%, >=70% but less than near-occlusion, near-occlusion, or total occlusion. Note that percent sten osis relative to normal distal artery lumen diameter is indirectly measured from velocity measurement s as described by Guero, et al. Radiology 2003; [id number]. COMPARISON: None. FINDINGS: RIGHT: There is extensive calcified plaque at the carotid bulb and proximal external and particularly proximal internal carotid arteries, without apparent complete occlusion of the proximal left interna l carotid artery. Ultrasound may not be sensitive for detection of an extremely stenotic lead still p atent vessel. CTA carotid examination therefore is recommended. The right common carotid artery (CCA) peak systolic velocity (PSV) is 91.1 cm/s. The right internal c arotid artery (ICA) PSV is 49.9 cm/s. The right ICA end-diastolic velocity (EDV) is 11.5 cm/s. The ri ght ICA/CCA PSV ratio is 0.5. Grayscale and color Doppler images yield an estimate of 100% diameter r eduction from plaque in the ICA. The external carotid artery (ECA) PSV is 88.9 cm/s. There is antegra de flow in the right vertebral artery. LEFT: The left CCA PSV is 87.4 cm/s. The left ICA PSV is 101.3 cm/s. The left ICA EDV is 22.8 cm/s. The lef t ICA/CCA PSV ratio is 1.2. Grayscale and color Doppler images yield an estimate of less than 50% clyde meter reduction from plaque in the ICA. The ECA PSV is 38.8 cm/s. There is antegrade flow in the left vertebral artery. IMPRESSION: 1. Suggestion of complete stenosis in the right internal carotid artery; ultrasound may not be sensit giancarlo for detection of an extremely stenotic but still patent vessel. CTA) examination is recommended.. 2. Less than 50% stenosis in the left internal carotid artery. Reviewed, dictated and finalized at Location A. Reviewed, dictated and finalized at location B. O BOARD OPERATOR IMPRESSION: 1. Suggestion of complete stenosis in the right internal carotid artery; ultras ound may not be sensitive for detection of an extremely stenotic but still harden nt vessel. CTA) examination is recommended.. 2. Less than 50% stenosis in the left internal carotid artery.
== END 2023-07-22 11:24 | disposition home or self-care (01) ==
PROVIDERS: PCP Family Medicine; Visit Provider Family Medicine
DX: I65.23 Occlusion and stenosis of bilateral carotid arteries (principal)
CPT/HCPCS: 93880

== ENCOUNTER 2023-08-25 10:27 | Outpatient (CLI) | payer MEDICARE, SELFPAY ==
[2023-08-25 11:50] LABS: Hemoglobin 11.4 g/dL (12.0-15.0); Immature Platelet Fraction Pct 11.1 % (0.9-11.2); Mean Corpuscular HGB Conc 31.7 g/dl (32-36); Mean Corpuscular Volume 94.7 fl (80-100); Mean Platelet Volume 13.3 fl (7.4-10.4); Platelet Count Result 177 k/mm3 (150-375); Red Cell Distribution Width 13.2 % (11.5-14.5); White Blood Count 7.1 K/mm3 (4.5-10.0)
[2023-08-25 12:01] LABS: Alanine Aminotransferase 11 U/L (6-35); Albumin Level 3.9 g/dL (3.5-5.1); Alkaline Phosphatase 58 U/L (38-126); Anion Gap 8 mmol/L (8-16); Aspartate Amino Transferase 31 U/L (14-36); Bilirubin,Total 0.9 mg/dL (0.2-1.3); Blood Urea Nitrogen 52 mg/dL (7-17); Carbon Dioxide 30 mmol/L (22-30); Chloride 100 mmol/L (98-107); Cholesterol 167 mg/dL (0-200); Estimated Glomerular Filt Rate 39; Glucose 105 mg/dL (65-110); HDL Direct 33 mg/dL; Potassium 3.4 mmol/L (3.4-5.0); Sodium 138 mmol/L (137-145); Triglycerides 185 mg/dL (<150)
[2023-08-25 12:12] LABS: LDL Cholesterol Direct 91 mg/dL
== END 2023-08-25 10:28 | disposition home or self-care (01) ==
LOC: ANHGOSHLAB 10:29
PROVIDERS: PCP Family Medicine; Visit Provider Family Medicine
DX: E78.2 Mixed hyperlipidemia (principal); D63.8 Anemia in other chronic diseases classified elsewhere; I10 Essential (primary) hypertension
CPT/HCPCS: 36415; 80053; 80061; 85027; 85055

== ENCOUNTER 2024-02-02 10:31 | Outpatient (CLI) | payer MEDICARE, SELFPAY ==
[2024-02-02 13:12] LABS: Hematocrit 32.9 % (37.0-47.0); Hemoglobin 10.2 g/dL (12.0-15.0); Mean Corpuscular Hemoglobin 29.8 pg (26-34); Mean Corpuscular Volume 96.2 fl (80-100); Platelet Count Result 177 k/mm3 (150-375); Red Blood Count 3.42 M/mm3 (4.2-5.4); Red Cell Distribution Width 14.2 % (11.5-14.5); White Blood Count 6.8 K/mm3 (4.5-10.0)
[2024-02-02 13:13] LABS: Alanine Aminotransferase 8 U/L (6-35); Albumin Level 3.9 g/dL (3.5-5.1); Alkaline Phosphatase 39 U/L (38-126); Anion Gap 9 mmol/L (4-12); Aspartate Amino Transferase 28 U/L (14-36); Blood Urea Nitrogen 33 mg/dL (7-17); Calcium 9.4 mg/dL (8.4-10.2); Carbon Dioxide 28 mmol/L (22-30); Chloride 103 mmol/L (98-107); Cholesterol 162 mg/dL (0-200); Estimated Glomerular Filt Rate 43; Glucose 92 mg/dL (65-110); HDL Direct 33 mg/dL; Potassium 4.3 mmol/L (3.4-5.0); Sodium 140 mmol/L (137-145); Triglycerides 183 mg/dL (<150)
[2024-02-02 13:24] LABS: LDL Cholesterol Direct 90 mg/dL
== END 2024-02-02 10:32 | disposition home or self-care (01) ==
LOC: ANHGOSHLAB 10:32
PROVIDERS: PCP Family Medicine; Visit Provider Family Medicine
DX: E78.2 Mixed hyperlipidemia (principal); D63.8 Anemia in other chronic diseases classified elsewhere; E66.01 Morbid (severe) obesity due to excess calories; I10 Essential (primary) hypertension
CPT/HCPCS: 36415; 80053; 80061; 84443; 85027

== ENCOUNTER 2024-02-16 14:28 | Outpatient (CLI) | payer MEDICARE, SELFPAY ==
--- NOTE | 2024-02-16 14:45 | ECHO_ITS ---
Patient Info Name: Janneth Camacho Age: 88 years : 1935 Gender: Female Ht: 65 in Wt: 220 lbs BSA: 2.18 m2 HR: 71 bpm BP: 129 / 68 mmHg Heart Rhythm: Sinus Rhythm Technical Quality: Fair Exam Date: 02/16/2024 2:53 PM Exam Location: [facility] Patient Status: Outpatient Admit Date: 02/16/2024 Staff Ordering Physician: Kimi Ansari DO Dry Chain Puller: Gogo Pool RDCS Attending Provider: Kimi Ansari DO Referring Physician: Elan WHITING; Exam Type: CA echo doppler color flow Study Info Indications I35.0 - Nonrheumatic aortic (valve) stenosis Complete two-dimensional, color flow and Doppler transthoracic echocardiogram is performed with contrast to opacify the left ventricle and to improve the deliniation of the left ventricle endocardial borders. Summary 1. Left ventricular chamber dimension is normal. 2. Left ventricular systolic function is normal, estimated at 60-65%. 3. The left ventricular diastolic function is abnormal. 4. E/e' 19 is elevated. 5. Left atrial chamber dimension is moderately enlarged. 6. There is moderate aortic valve sclerosis. 7. There is moderate aortic valve stenosis with a peak velocity of 332 cm/s, mean gradient of 24 mmHg, and aortic valve area of 1.1 cm2. 8. There is trace aortic valve regurgitation. 9. The mitral valve has moderately calcified annulus. 10. There is mild mitral valve regurgitation. 11. There is trace tricuspid valve regurgitation. 12. No pulmonary hypertension, estimated pulmonary arterial systolic pressure is 35 mmHg. 13. There is trace pulmonic regurgitation. Left Ventricle E/e' 19 is elevated. Left ventricular chamber dimension is normal. Left ventricular systolic function is normal, estimated at 60-65%. The left ventricular diastolic function is abnormal. Right Ventricle Right ventricular systolic function is normal and with normal TAPSE 2.6 cm. Right ventricular chamber dimension is normal. Left Atria Left atrial chamber dimension is moderately enlarged. Right Atria Right atrial chamber dimension is normal. Aortic Valve The aortic valve is trileaflet. There is moderate aortic valve sclerosis. There is moderate aortic valve stenosis with a peak velocity of 332 cm/s, mean gradient of 24 mmHg, and aortic valve area of 1.1 cm2. There is trace aortic valve regurgitation. Pulmonic Valve There is trace pulmonic regurgitation. Mitral Valve The mitral valve has moderately calcified annulus. There is no mitral valve stenosis. There is mild mitral valve regurgitation. Tricuspid Valve There is trace tricuspid valve regurgitation. No pulmonary hypertension, estimated pulmonary arterial systolic pressure is 35 mmHg. Pericardium/Pleural There is no pericardial effusion. Inferior Vena Cava Normal inferior vena cava with >50% collapse upon inspiration consistent with normal right atrial pressure, 5 mmHg. Aorta The aortic root size at the sinus of Valsalva is normal. Left Ventricular Outflow Tract Name Value Normal LVOT 2D LVOT Diameter 2.0 cm LVOT Doppler LVOT Peak Gradient 6 mmHg LVOT Mean Gradient 3 mmHg LVOT VTI 25 cm L
== END 2024-02-16 14:29 | disposition home or self-care (01) ==
PROVIDERS: PCP Family Medicine; Visit Provider Family Medicine
DX: I35.0 Nonrheumatic aortic (valve) stenosis (principal); Z86.79 Personal history of other diseases of the circulatory system
CPT/HCPCS: 93306

== ENCOUNTER 2024-04-27 11:52 | Outpatient (CLI) | payer MEDICARE, SELFPAY ==
--- NOTE | ~2024-04-27 | XR_ITS ---
PA, oblique, and lateral views of the right fourth finger CLINICAL HISTORY: Pain and swelling FINDINGS: There is advanced degenerative change of the fourth PIP joint. There is mild degenerative c hange of the fourth DIP joint. No fracture or dislocation. Soft tissues are unremarkable. 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 Mild degenerative change of the fourth DIP joint. Reviewed, dictated and finalized at location .
== END 2024-04-27 11:53 | disposition home or self-care (01) ==
PROVIDERS: PCP Nurse Practitioner; Visit Provider Nurse Practitioner
DX: M79.89 Other specified soft tissue disorders (principal); M19.041 Primary osteoarthritis, right hand
CPT/HCPCS: 73140

== ENCOUNTER 2024-06-04 23:00 | Inpatient (IN) | payer MEDICARE, SELFPAY ==
--- NOTE | ~2024-06-04 | XR_ITS ---
Portable chest x-ray Comparison: None Clinical History: Weakness, status post fall Findings: Lungs are clear, without focal consolidation or pleural effusion. Cardiomediastinal silho uette is unremarkable, with prominent mitral annular ossification. Bones and soft tissues are unremar kable. Impression: Clear lungs. No acute abnormality evident. Reviewed, dictated and finalized at [facility]. RNAL CARVER Impression: Clear lungs. No acute abnormality evident.
--- NOTE | ~2024-06-04 | CT_ITS ---
CT Facial Bones and Cervical Spine Clinical Indication: Injury Technique: Contiguous axial scans were obtained through the facial bones and cervical spine followed by coronal and sagittal reconstructions. Dose reduction technique was used on this scan by utilizing automated exposure control and iterative reconstruction technique. The dose-length product (DLP) was 263.27 mGy-cm. Findings: CT facial bones: No fractures are identified. The visualized paranasal sinuses are clear. Intraorbita l soft tissues appear normal. CT cervical spine: No fractures or subluxation. There is advanced degenerative distended at C5-C6 an d C6-C7, with more mild degenerative disc narrowing at the remaining cervical levels. There is bilate ral neural foraminal narrowing at C3-C4, right worse than left, bilateral facet arthropathy. There is right neural foraminal narrowing at C4-C5, prominent right facet arthropathy. There is bilateral manny ral foraminal narrowing at C5-C6, with bilateral facet arthropathy. There are probable minimal bilate ral neural foraminal narrowing at C6-C7. No prevertebral soft tissue swelling. Impression: No fracture is seen in the facial bones. No fracture or subluxation of the cervical spine. Degenerative spondylosis of the spine, as above. Reviewed, dictated and finalized at location . NSIC NURSE Impression: No fracture is seen in the facial bones. No fracture or subluxation of the cervical spine. Degenerative spondylosis of the spine, as above.
--- NOTE | ~2024-06-04 | XR_ITS ---
Portable chest x-ray Comparison: 06/05/2024 at 3:23 AM Clinical History: Chest pain Findings: Lungs remain clear, without focal consolidation or pleural effusion. Cardiomediastinal si lhouette is stable. Bones and soft tissues are unremarkable. Impression: Clear lungs. No change from prior exam. Reviewed, dictated and finalized at location . SH GRINDER Impression: Clear lungs. No change from prior exam.
--- NOTE | ~2024-06-04 | CT_ITS ---
CT head without contrast Indication: Head injury Technique: Serial scans were obtained through the brain without the administration of contrast. Dose reduction technique was used on this scan by utilizing automated exposure control and iterative recon struction technique. The dose-length product (DLP) was 681.00 mGy-cm. Findings: There is no evidence of intracranial hemorrhage, mass lesion, or acute infarct. The ventri cles and subarachnoid spaces are dilated, consistent with mild atrophy. Low attenuation regions are seen within the periventricular white matter bilaterally, likely representing changes from chronic mi crovascular ischemic disease. There is no evidence of edema, mass effect or midline shift. The visu alized paranasal sinuses and mastoid air cells are clear. Impression: No intracranial hemorrhage, mass, or acute infarct. Atrophy and chronic white matter changes, as above. Reviewed, dictated and finalized at location . T SALES ASSOCIATE Impression: No intracranial hemorrhage, mass, or acute infarct. Atrophy and chronic white matter changes, as above.
--- NOTE | 2024-06-04 23:07 | ECG_ITS ---
Test Date: 2024-06-04 23:15:26 Measurements Intervals [place] Rate: 92 P: 80 MN: 196 QRS: -52 QRSD: 121 T: 73 QT: 394 QTc: 489 Interpretive Statements SINUS RHYTHM WITH OCCASIONAL SUPRAVENTRICULAR PREMATURE COMPLEXES LEFT ANTERIOR FASCICULAR BLOCK NONSPECIFIC ST & T-WAVE ABNORMALITY- HIGH LATERAL LEADS BASELINE ARTIFACT- I, II, III, AVR, AVF, V1 ABNORMAL ECG No previous ECG available for comparison Electronically Signed On 06-05-2024 07:44:48 WILDERNESS GUIDE by Eben Serra D.O.
[2024-06-04 23:08] VITALS: BP 81/44; PULSE 91; RESP 18; TEMP 36.8; O2SAT 98
--- NOTE | 2024-06-04 23:14 | ED.GENADULT ---
HPI - General Adult General Chief complaint: Fall <Dwight Castillo MD - Last Filed: 06/05/24 03:12> Stated complaint: fall <Dwight Castillo MD - Last Filed: 06/05/24 03:12> Time Seen by Provider: 06/04/24 23:07 <Dwight Castillo MD - Last Filed: 06/05/24 03:12> History of Present Illness HPI narrative: patient 88-year-old female who presents emergency department chief complaint of head injury. Patient reports she lost her balance fell struck her forehead patient states she had no loss of consciousness but reports he is on a blood thinner. Patient reports that she has laceration to her forehead reports he is up-to-date on her tetanus. The patient reports no pain in her arms or legs reports no back pain does report a bit of discomfort in her cervical spine. <Dwight Castillo MD - Last Filed: 06/05/24 03:12> Related Data Home medications: Home Medications Medication Instructions Recorded Confirmed calcium carbonate (Calcium 600) 600 mg PO DAILY 10/19/19 06/02/24 cholecalciferol (vitamin D3) 25 25 mcg PO DAILY 10/19/19 06/02/24 mcg (1,000 unit) capsule vit C 250 mg-vit E 90 mg-zinc 40 1 tablet PO DAILY 05/16/22 06/02/24 mg-copper 1 [id number] capsule (PreserVision AREDS-2) <Dwight Castillo MD - Last Filed: 06/05/24 03:12> Allergies/adverse reactions: Allergies Allergy/AdvReac Type Severity Reaction Status Date / Time Penicillins Allergy Unknown itching Verified 06/02/24 13:04 <Dwight Castillo MD - Last Filed: 06/05/24 03:12> Review of Systems Review of Systems: A 10 system review of systems was completed on the patient and is negative except for what is stated in the HPI. Nursing and ancillary documentation was reviewed. <Dwight Castillo MD - Last Filed: 06/05/24 03:12> FORMERLY [facility] Past Medical History Medical History: Medical History Aortic stenosis Contusion of eyebrow Essential (primary) hypertension Lymphedema Mixed hyperlipidemia Muscle strain, upper arm Positive colorectal cancer screening using Cologuard test Rotator cuff strain Sprain of cervical neck <Dwight Castillo MD - Last Filed: 06/05/24 03:12> Surgical History Surgical History: Surgical History Cataract extraction status BOTH EYES JUN 2019-RIGHT MAY 2019- LEFT H/O: hysterectomy History of appendectomy <Dwight Castillo MD - Last Filed: 06/05/24 03:12> Family History Family History: Family History Father Acute myocardial infarction, Onset Age: 73 Mother Family history of malignant neoplasm of breast in first degree relative, Onset Age: 73 Other , jul.22 No problems noted. <Dwight Castillo MD - Last Filed: 06/05/24 03:12> Social History Social History: Social History Social History: Caffeine-coffee/soda Smoking status: Never smoker Alcohol intake: never Substance use: never Substance use type: does not use Lack of Transportation: No Lack of Food: Never True Current Housing: I Have Housing Concerned About Future Housing: No Difficulty Paying Gas/Electric Bills: No Difficulty Paying for Meds: No Currently Unemployed: No Education: High School Diploma/GED Difficulty w/ Childcare or Family Care: No Living arrangements: with family Gender identity (if verbalized by the patient): Female Spiritual care concerns: No <Dwight Castillo MD - Last Filed: 06/05/24 03:12> Exam Narrative: GENERAL: Well-appearing, well-nourished, and in no acute distress. HEAD: Normocephalic, Laceration of the right forehead. EYES: PERRLA and EOMI. ENT: Nares clear, no rhinorrhea or epistaxis. Mucous membranes moist. NECK: Supple. CHEST: Clear to auscultation. No respiratory distress. HEART: Regular rate and rhythm. No murmur heard. Normal peripheral pulses. ABDOMEN: Soft, nontender, nondistended, normal active bowel sounds. EXTREMITIES: Normal range of motion. No edema. SKIN: Warm, dry, no rash. NEURO: No focal deficits. Alert and oriented x3. PSYCH: Normal mood and affect. <Dwight Castillo MD - Last Filed: 06/05/24 03:12> Course Vital Signs Vital signs: Vital Signs Temperature 36.8 C 06/04/24 23:08 Pulse Rate 91 06/04/24 23:08 Respiratory Rate 18 06/04/24 23:08 Blood Pressure 81/44 L 06/04/24 23:08 Pulse Oximetry 98 06/04/24 23:08 Oxygen Delivery Room Air 06/04/24 23:08 Temperature 36.8 C 06/04/24 23:08 Pulse Rate 80 06/05/24 00:27 Respiratory Rate 16 06/05/24 00:27 Blood Pressure 102/60 06/05/24 02:04 Pulse Oximetry 97 06/05/24 00:27 Oxygen Delivery Room Air 06/04/24 23:08 <Dwight Castillo MD - Last Filed: 06/05/24 03:12> Vital Signs Temperature 36.8 C 06/04/24 23:08 Pulse Rate 91 06/04/24 23:08 Respiratory Rate 18 06/04/24 23:08 Blood Pressure 81/44 L 06/04/24 23:08 Pulse Oximetry 98 06/04/24 23:08 Oxygen Delivery Room Air 06/04/24 23:08 Temperature 36.8 C 06/04/24 23:08 Pulse Rate 80 06/05/24 00:27 Respiratory Rate 16 06/05/24 00:27 Blood Pressure 102/60 06/05/24 02:04 Pulse Oximetry 97 06/05/24 00:27 Oxygen Delivery Room Air 06/04/24 23:08 <Zechariah Bradshaw PA-C - Last Filed: 06/05/24 01:22> Procedures Laceration Laceration 1: Date: 06/05/24 <Zechariah Bradshaw PA-C - Last Filed: 06/05/24 01:22> Time: 01:21 <Zechariah Bradshaw PA-C - Last Filed: 06/05/24 01:22> Site: scalp <KAREEM Zheng Last Filed: 06/05/24 01:22> Side (If applicable): right <KAREEM Zheng Last Filed: 06/05/24 01:22> Size (cm): 2 <Zechariah Bradshaw PA-C - Last Filed: 06/05/24 01:22> Description: linear <Zechariah Bradshaw PA-C - Last Filed: 06/05/24 01:22> Depth: simple, single layer <Zechariah Bradshaw PA-C - Last Filed: 06/05/24 01:22> Local Anesthetic: lidocaine 1% and with epi <Zechariah Bradshaw PA-C - Last Filed: 06/05/24 01:22> Amount of anesthesia used (mL): 2 <KAREEM Zheng Last Filed: 06/05/24 01:22> Pre-repair: wound explored, irrigated extensively and deep structures intact <KAREEM Zheng Last Filed: 06/05/24 01:22> ====== Skin Level ======: Skin layer closed with: nylon <KAREEM Zheng Last Filed: 06/05/24 01:22> Size (cm): 6-0 <Zechariah Bradshaw PA-C - Last Filed: 06/05/24 01:22> Number of sutures: 2 <KAREEM Zheng Last Filed: 06/05/24 01:22> Technique: simple, interrupted <KAREEM Zheng Last Filed: 06/05/24 01:22> ====== Subcutaneous Layer ======: ====== Muscle Layer ======: ====== Tendon Layer ======: Dressing: None <KAREEM Zheng Last Filed: 06/05/24 01:22> Medical Decision Making MDM Narrative Medical decision making narrative: differential diagnosis includes head injury, cervical spine fracture For studies were obtained the patient which showed a creatinine of 2.3 this increased from the patient's baseline she also has urinary tract infection on urinalysis Patient's blood pressures were somewhat low responded IV fluids. Case was discussed with the hospitalist the laceration was repaired by RAFAEL <Dwight Castillo MD - Last Filed: 06/05/24 03:12> Vital Signs Vital Signs: Vital Signs Temperature 36.8 C 06/04/24 23:08 Pulse Rate 91 06/04/24 23:08 Respiratory Rate 18 06/04/24 23:08 Blood Pressure 81/44 L 06/04/24 23:08 Pulse Oximetry 98 06/04/24 23:08 Oxygen Delivery Room Air 06/04/24 23:08 Temperature 36.8 C 06/04/24 23:08 Pulse Rate 80 06/05/24 00:27 Respiratory Rate 16 06/05/24 00:27 Blood Pressure 102/60 06/05/24 02:04 Pulse Oximetry 97 06/05/24 00:27 Oxygen Delivery Room Air 06/04/24 23:08 <Dwight Castillo MD - Last Filed: 06/05/24 03:12> Vital Signs Temperature 36.8 C 06/04/24 23:08 Pulse Rate 91 06/04/24 23:08 Respiratory Rate 18 06/04/24 23:08 Blood Pressure 81/44 L 06/04/24 23:08 Pulse Oximetry 98 06/04/24 23:08 Oxygen Delivery Room Air 06/04/24 23:08 Temperature 36.8 C 06/04/24 23:08 Pulse Rate 80 06/05/24 00:27 Respiratory Rate 16 06/05/24 00:27 Blood Pressure 102/60 06/05/24 02:04 Pulse Oximetry 97 06/05/24 00:27 Oxygen Delivery Room Air 06/04/24 23:08 <Zechariah Bradshaw PA-C - Last Filed: 06/05/24 01:22> Lab Data Result diagrams: 06/04/24 23:25 06/04/24 23:25 <Dwight Castillo MD - Last Filed: 06/05/24 03:12> Labs: Lab Results 06/04/24 06/04/24 06/05/24 Range/Units 23:24 23:25 01:01 WBC 13.7 H (4.5-10.0) K/mm3 RBC 3.56 L (4.2-5.4) M/mm3 Hgb 10.9 L (12.0-15.0) g/dL Hct 32.3 L (37.0-47.0) % MCV 90.7 (80-100) fl MCH 30.6 (26-34) pg MCHC 33.7 (32-36) g/dl RDW 13.8 (11.5-14.5) % Plt Count 196 (150-375) k/mm3 MPV 13.5 H (7.4-10.4) fl Immature Gran % (Auto) 0.4 (0-0.5) % Neut % (Auto) 82.5 H (45.5-73.1) % Lymph % (Auto) 5.8 L (18.3-44.2) % [place] % (Auto) 10.8 H (2.6-8.5) % Eos % (Auto) 0.1 (0-4.4) % Baso % (Auto) 0.4 (0.2-1.2) % Lymph # (Auto) 0.80 L (0.9-3.2) K/mm3 [place] # (Auto) 1.5 H (0.1-0.6) K/mm3 Eos # (Auto) 0.0 (0-0.3) K/mm3 Baso # (Auto) 0.1 (0.0-0.1) K/mm3 Abs Immat Gran (auto) 0.05 H (0.00-0.031) K/mm3 Absolute Neuts (auto) 11.3 H (1.3-6.7) K/mm3 Absolute Nucleated RBC 0.000 (0.0-0.012) K/mm3 Nucleated RBC % 0.0 (0.0-0.2) % % Immature Plt Fraction 7.9 (0.9-11.2) % Sodium 136 L (137-145) mmol/L Potassium 3.0 L (3.4-5.0) mmol/L Chloride 101 (98-107) mmol/L Carbon Dioxide 23 (22-30) mmol/L Anion Gap 12 (4-12) mmol/L BUN 56 H D (7-17) mg/dL Creatinine 2.30 H (0.7-1.0) mg/dL Estim Creat Clear Calc 19 ml/min Estimated GFR 20 L (59 - ) Glucose 98 (65-110) mg/dL Lactic Acid 2.1 H (0.7-2.0) mmol/L Calcium 9.8 (8.4-10.2) mg/dL Total Bilirubin 1.0 (0.2-1.3) mg/dL AST 25 (14-36) U/L ALT 12 (6-35) U/L Alkaline Phosphatase 57 (38-126) U/L Troponin I 0.017 (0.000-0.034) ng/mL NT-Pro-B Natriuret Pep 3060 H (19.9-100) pg/mL Total Protein 7.0 (6.3-8.2) g/dL Albumin 3.6 (3.5-5.1) g/dL Procalcitonin 0.3 ng/mL Urine Color Yellow (Yellow) Urine Appearance Cloudy H (Clear) Urine pH 5.5 (5.0-9.0) Ur Specific [place] 1.014 (1.001-1.035) Urine Protein Trace (Negative) mg/dL Urine Glucose (UA) Negative (Negative) mg/dL Urine Ketones Trace H (Negative) mg/dL Ur Blood (Man) Trace (Negative) Urine Nitrate Positive H (Negative) Urine Bilirubin Negative (Negative) Urine Urobilinogen 0.2 (<2.0) mg/dL Add Ur Microanalysis Reviewed Leukocyte Esterase Rfl 2+ H (Negative) ROSAURA/UL Urine RBC 0-2 (0-2) /hpf Urine WBC 21-50 H (0-3) /hpf Ur Squamous Epith Cells None seen (Few) /hpf Urine Bacteria 4+ H /hpf Urine Casts 6-10 Hyaline Casts Present (None) /lpf <Dwight Castillo MD - Last Filed: 06/05/24 03:12> Lab Results 06/04/24 06/04/24 06/05/24 Range/Units 23:24 23:25 01:01 WBC 13.7 H (4.5-10.0) K/mm3 RBC 3.56 L (4.2-5.4) M/mm3 Hgb 10.9 L (12.0-15.0) g/dL Hct 32.3 L (37.0-47.0) % MCV 90.7 (80-100) fl MCH 30.6 (26-34) pg MCHC 33.7 (32-36) g/dl RDW 13.8 (11.5-14.5) % Plt Count 196 (150-375) k/mm3 MPV 13.5 H (7.4-10.4) fl Immature Gran % (Auto) 0.4 (0-0.5) % Neut % (Auto) 82.5 H (45.5-73.1) % Lymph % (Auto) 5.8 L (18.3-44.2) % [place] % (Auto) 10.8 H (2.6-8.5) % Eos % (Auto) 0.1 (0-4.4) % Baso % (Auto) 0.4 (0.2-1.2) % Lymph # (Auto) 0.80 L (0.9-3.2) K/mm3 [place] # (Auto) 1.5 H (0.1-0.6) K/mm3 Eos # (Auto) 0.0 (0-0.3) K/mm3 Baso # (Auto) 0.1 (0.0-0.1) K/mm3 Abs Immat Gran (auto) 0.05 H (0.00-0.031) K/mm3 Absolute Neuts (auto) 11.3 H (1.3-6.7) K/mm3 Absolute Nucleated RBC 0.000 (0.0-0.012) K/mm3 Nucleated RBC % 0.0 (0.0-0.2) % % Immature Plt Fraction 7.9 (0.9-11.2) % Sodium 136 L (137-145) mmol/L Potassium 3.0 L (3.4-5.0) mmol/L Chloride 101 (98-107) mmol/L Carbon Dioxide 23 (22-30) mmol/L Anion Gap 12 (4-12) mmol/L BUN 56 H D (7-17) mg/dL Creatinine 2.30 H (0.7-1.0) mg/dL Estim Creat Clear Calc 19 ml/min Estimated GFR 20 L (59 - ) Glucose 98 (65-110) mg/dL Lactic Acid 2.1 H (0.7-2.0) mmol/L Calcium 9.8 (8.4-10.2) mg/dL Total Bilirubin 1.0 (0.2-1.3) mg/dL AST 25 (14-36) U/L ALT 12 (6-35) U/L Alkaline Phosphatase 57 (38-126) U/L Troponin I 0.017 (0.000-0.034) ng/mL NT-Pro-B Natriuret Pep 3060 H (19.9-100) pg/mL Total Protein 7.0 (6.3-8.2) g/dL Albumin 3.6 (3.5-5.1) g/dL Procalcitonin 0.3 ng/mL Urine Color Yellow (Yellow) Urine Appearance Cloudy H (Clear) Urine pH 5.5 (5.0-9.0) Ur Specific [place] 1.014 (1.001-1.035) Urine Protein Trace (Negative) mg/dL Urine Glucose (UA) Negative (Negative) mg/dL Urine Ketones Trace H (Negative) mg/dL Ur Blood (Man) Trace (Negative) Urine Nitrate Positive H (Negative) Urine Bilirubin Negative (Negative) Urine Urobilinogen 0.2 (<2.0) mg/dL Add Ur Microanalysis Reviewed Leukocyte Esterase Rfl 2+ H (Negative) ROSAURA/UL Urine RBC 0-2 (0-2) /hpf Urine WBC 21-50 H (0-3) /hpf Ur Squamous Epith Cells None seen (Few) /hpf Urine Bacteria 4+ H /hpf Urine Casts 6-10 Hyaline Casts Present (None) /lpf <Zechariah Bradshaw PA-C - Last Filed: 06/05/24 01:22> Discharge Plan Discharge Clinical Impression: Fall from ground level, Forehead laceration, Acute kidney injury, Acute UTI <Dwight Castillo MD - Last Filed: 06/05/24 03:12> Patient Disposition: Still a Patient <Dwight Castillo MD - Last Filed: 06/05/24 03:12> Condition: Stable <Dwight Castillo MD - Last Filed: 06/05/24 03:12> Prescriptions: No Action cholecalciferol (vitamin D3) 25 mcg (1,000 unit) capsule 25 mcg PO DAILY calcium carbonate [Calcium 600] 600 mg calcium (1,500 mg) tablet 600 mg PO DAILY PreserVision AREDS-2 250-90-40-1 mg capsule 1 tablet PO DAILY Eliquis 5 mg tablet 5 mg PO BID Qty: 180 1RF lisinopril 20 mg tablet 20 mg PO DAILY Qty: 90 1RF solifenacin [Vesicare] 10 mg tablet 10 mg PO DAILY Qty: 90 1RF furosemide 40 mg tablet 40 mg PO QAM Qty: 90 1RF <Dwight Castillo MD - Last Filed: 06/05/24 03:12> Follow-up/Referrals: Leisa Otero, DIRECTOR GRAPHICS-C [Primary Care Provider] - <Dwight Castillo MD - Last Filed: 06/05/24 03:12> Time of Disposition: 03:12 <Dwight Castillo MD - Last Filed: 06/05/24 03:12> 03:12 <Zechariah Bradshaw PA-C - Last Filed: 06/05/24 01:22>
--- NOTE | 2024-06-04 23:27 | PC.NURSE ---
88 yo female bibems for fall. EMS reports that patient was going to the bathroom and fell while trying to get up from toilet. Patient sustained an laceration to the forehead. Bleeding is under control at this time. Wound cleansed with sterile water and wound laboratory equipment cleaner. Family in at beside.
[2024-06-04] MEDS: SODIUM CHLORIDE 0.9% IV 1,000 ML 999 ML IV CONT (23:39)
--- NOTE | 2024-06-04 23:41 | PC.NURSE ---
informed MD of soft blood pressure 80/40s. MD made aware. Order for fluid bolus, Normal Saline 1000 ML. 1L Normal Saline infusing through patent PIV at this time. Patient is not able to provide urine at this time. Will allow fluids to run, then re-attempt urine collection. Patient is resting on ER stretcher, family at bedside.
[2024-06-04 23:50] LABS: Basophils Absolute Auto 0.1 K/mm3 (0.0-0.1); Basophils Percent Auto 0.4 % (0.2-1.2); Eosinophils Percent Auto 0.1 % (0-4.4); Hematocrit 32.3 % (37.0-47.0); Hemoglobin 10.9 g/dL (12.0-15.0); Immature Granulocyte Absolute 0.05 K/mm3 (0.00-0.031); Immature Granulocyte Percent A 0.4 % (0-0.5); Immature Platelet Fraction Pct 7.9 % (0.9-11.2); Lymphocytes Percent Auto 5.8 % (18.3-44.2); Mean Corpuscular HGB Conc 33.7 g/dl (32-36); Mean Corpuscular Hemoglobin 30.6 pg (26-34); Mean Corpuscular Volume 90.7 fl (80-100); Mean Platelet Volume 13.5 fl (7.4-10.4); Monocytes Absolute Auto 1.5 K/mm3 (0.1-0.6); Monocytes Percent Auto 10.8 % (2.6-8.5); Neutrophils Absolute Auto 11.3 K/mm3 (1.3-6.7); Neutrophils Percent Auto 82.5 % (45.5-73.1); Platelet Count Result 196 k/mm3 (150-375); Red Blood Count 3.56 M/mm3 (4.2-5.4); Red Cell Distribution Width 13.8 % (11.5-14.5); White Blood Count 13.7 K/mm3 (4.5-10.0)
[2024-06-05] VITALS (16 sets, daily range): BP systolic 90–145; BP diastolic 44–98; PULSE 80–114; RESP 16–20; TEMP 36.9–37.7; O2SAT 97–100; BMI 34.3
[2024-06-05 00:02] LABS: Alanine Aminotransferase 12 U/L (6-35); Albumin Level 3.6 g/dL (3.5-5.1); Alkaline Phosphatase 57 U/L (38-126); Anion Gap 12 mmol/L (4-12); Aspartate Amino Transferase 25 U/L (14-36); Blood Urea Nitrogen 56 mg/dL (7-17); Calcium 9.8 mg/dL (8.4-10.2); Carbon Dioxide 23 mmol/L (22-30); Chloride 101 mmol/L (98-107); Estimated CRCL calculation 19 ml/min; Estimated Glomerular Filt Rate 20; Glucose 98 mg/dL (65-110); Sodium 136 mmol/L (137-145)
[2024-06-05 00:03] LABS: Lactic Acid Reflex 2.1 mmol/L (0.7-2.0)
--- NOTE | 2024-06-05 00:28 | PC.NURSE ---
patient is resting in bed. RN obtained vitals and gave warm blanket.
[2024-06-05 01:12] LABS: NT Pro B Type Natriuretic Pept 3060 pg/mL (19.9-100); Troponin I 0.017 ng/mL (0.000-0.034)
[2024-06-05 01:22] LABS: Add Urine Microscopic? YES; Appearance Urine Cloudy (Clear); Bacteria Urine 4+ /hpf; Bilirubin Urine Negative (Negative); Blood Urine Trace (Negative); Color Urine Yellow (Yellow); Glucose Urine UA Negative (Negative); Hyaline Casts Urine Present /lpf; Ketones Urine Trace mg/dL (Negative); Leukocyte Esterase Ur 2+ LEU/UL (Negative); Need Manual Microscopic Reviewed; Nitrate Urine Positive (Negative); Protein Urine Trace mg/dL (Negative); RBC Urine 0-2 /hpf (0-2); Specific Grav Ur 1.014 (1.001-1.035); Squamous Epithelial Cell Urine None Seen /hpf (Few); Urobilinogen Urine 0.2 mg/dL (<2.0); WBC Urine 21-50 /hpf (0-3); pH Urine 5.5 (5.0-9.0)
[2024-06-05 01:26] LABS: Procalcitonin 0.3 ng/mL
[2024-06-05 02:44] LABS: Reflex Lactic Acid Yes or No Add Lactic
[2024-06-05] MEDS: SODIUM CHLORIDE 0.9% IV 1,000 ML 125 ML IV CONT ×3 (03:12→22:06)
[2024-06-05 03:28] LABS: Phosphorus 3.8 mg/dL (2.5-4.5)
[2024-06-05] MEDS: KCL 20 MEQ/SW 100 ML 100 ML 50 MEQ IVPB (03:33)
--- NOTE | 2024-06-05 04:28 | PC.NURSE ---
patient had a bowel movement at this time. patient bedding changed and new chucks applied to the bed.
--- NOTE | 2024-06-05 06:38 | ADMGEN ---
This patient, Janneth Camacho, was admitted to IMU Room 232-01 on 06/05/24 at 0554. Patient/family oriented to hospital policies and general routines including ID bracelet, bed and alarms, visiting hours, pain management, procedures, bathroom and other care routines, personal items, smoking policy, room service/diet, and visiting hours. Information on how to activate the Rapid Response Team has been discussed. Patient/Family are encouraged to report perceived risks to care and to ask questions if they do not understand what they are told or what they should do.
--- NOTE | 2024-06-05 08:24 | ECG_ITS ---
Test Date: 2024-06-05 08:49:18 Measurements Intervals [place] Rate: 99 P: 79 IA: 209 QRS: -44 QRSD: 123 T: 81 QT: 443 QTc: 571 Interpretive Statements SINUS RHYTHM WITH FIRST DEGREE AV BLOCK LEFT AXIS DEVIATION INCOMPLETE LEFT BUNDLE BRANCH BLOCK BORDERLINE ST-T WAVE ABNORMALITY- HIGH LATERAL LEADS BASELINE ARTIFACT- I, II, III, AVR, AVL, AVF ABNORMAL ECG Compared to ECG 06/04/2024 23:15:26 INCOMPLETE LEFT BUNDLE BRANCH BLOCK NOW PRESENT Electronically Signed On 06-05-2024 12:01:02 DOSIMETRIST by Eben Serra D.O.
[2024-06-05] MEDS: SOLIFENACIN 5 MG TABLET 10 MG PO (08:56)
[2024-06-05] MEDS: CALCIUM CARBONATE (TUMS) 500 MG (200 MG ELEMENTAL) 600 MG BY MOUTH (08:56)
[2024-06-05] MEDS: OPTI-GEN TAB 1 TABLET PO (08:56)
[2024-06-05] MEDS: APIXABAN 5 MG TABLET PO ×2 (08:56→17:41)
[2024-06-05] MEDS: CHOLECALCIFEROL 1,000 UNITS TABLET 1000 UNITS PO (08:56)
[2024-06-05] MEDS: MORPHINE SULFATE (*CRX) 2 MG/ML INJ IV PUSH (08:58)
[2024-06-05 09:00] LABS: Troponin I 0.023 ng/mL (0.000-0.034)
--- NOTE | 2024-06-05 13:21 | P.HP_ITS ---
H&P: HPI History of Present Illness Date/Time: 06/05/24 13:21 Chief Complaint: fall Narrative: patient is 88-year-old female who presents emergency department chief complaint of fall and head injury. Patient reports she lost her balance fell struck her forehead patient states she had no loss of consciousness but reports he is on a blood thinner. Patient reports that she has laceration to her forehead. The patient reports no pain in her arms or legs reports no back pain does report a bit of discomfort in her cervical spine . On ED evaluation she was hypotensive with blood pressure 81/44. Received some fluid boluses in the ER. Forehead laceration was sutured. Laboratory evaluation revealed WBC of 13.7 hemoglobin 10.9 potassium 3.0 creatinine up at 2.3 baseline around 1.3. Lactate was elevated at 2.1. Troponin was negative at 0.017 BNP 3060. Urinalysis was positive for UTI with urine WBC 20 1-50. She is admitted for further treatment PMF Past Medical History Medical History Aortic stenosis Contusion of eyebrow Essential (primary) hypertension Lymphedema Mixed hyperlipidemia Muscle strain, upper arm Positive colorectal cancer screening using Cologuard test Rotator cuff strain Sprain of cervical neck Surgical History Surgical History Cataract extraction status BOTH EYES JUN 2019-RIGHT MAY 2019- LEFT H/O: hysterectomy History of appendectomy Family History Family History Father Acute myocardial infarction, Onset Age: 73 Hypertension Carotid stenosis History of carotid endarterectomy Mother Family history of malignant neoplasm of breast in first degree relative, Onset Age: 73 Sibling Coronary artery disease Sibling Diabetes mellitus Social History Social History Social History: Caffeine-coffee/soda Smoking status: Never smoker Second hand tobacco smoke exposure: No Alcohol intake: never Substance use: never Substance use type: does not use Do You Feel Safe in your Home?: Yes Lack of Transportation: No Lack of Food: Never True Current Housing: I Have Housing Concerned About Future Housing: No Difficulty Paying Gas/Electric Bills: No Difficulty Paying for Meds: No Currently Unemployed: No Education: High School Diploma/GED Difficulty w/ Childcare or Family Care: No Living arrangements: with family Gender identity (if verbalized by the patient): Female Spiritual care concerns: No Meds Home Medications and Allergies Home Medications Medication Instructions Recorded Confirmed Type calcium carbonate (Calcium 600) 600 mg PO DAILY 10/19/19 06/05/24 History cholecalciferol (vitamin D3) 25 25 mcg PO DAILY 10/19/19 06/05/24 History mcg (1,000 unit) capsule vit C 250 mg-vit E 90 mg-zinc 40 1 tablet PO DAILY 05/16/22 06/05/24 History mg-copper 1 [id number] capsule (PreserVision AREDS-2) apixaban 5 mg tablet (Eliquis) 5 mg PO BID #180 tabs 06/08/23 06/05/24 Rx solifenacin 10 mg tablet (Vesicare) 10 mg PO DAILY #90 tabs 01/18/24 06/05/24 Rx furosemide 40 mg tablet 40 mg PO QAM #90 tabs 04/08/24 06/05/24 Rx lisinopril 20 mg tablet 20 mg PO DAILY #90 tabs 06/02/24 06/05/24 Rx Allergies Allergy/AdvReac Type Severity Reaction Status Date / Time Penicillins Allergy Unknown itching Verified 06/05/24 07:14 Vital Signs Vital Signs - 24 hr 06/04/24 23:08 06/05/24 00:27 06/05/24 02:04 Temperature 98.2 F Pulse Rate 91 80 Respiratory Rate 18 16 Blood Pressure 81/44 L 132/49 L 102/60 Pulse Oximetry 98 97 Oxygen Delivery Room Air Fraction of Inspired Oxygen 06/05/24 06:31 06/05/24 06:10 06/05/24 06:01 Temperature 98.6 F Pulse Rate 98 101 H Respiratory Rate 16 Blood Pressure 122/49 L Pulse Oximetry 100 Oxygen Delivery Room Air Fraction of Inspired Oxygen 06/05/24 08:00 06/05/24 08:15 06/05/24 08:00 Temperature 99.1 F Pulse Rate 98 94 Respiratory Rate Blood Pressure 110/45 L Pulse Oximetry 99 99 Oxygen Delivery Room Air Fraction of Inspired Oxygen 21 06/05/24 08:00 06/05/24 10:00 06/05/24 12:00 Temperature Pulse Rate 105 H Respiratory Rate Blood Pressure Pulse Oximetry Oxygen Delivery Room Air Room Air Fraction of Inspired Oxygen 06/05/24 12:00 Temperature Pulse Rate 114 H Respiratory Rate Blood Pressure Pulse Oximetry Oxygen Delivery Fraction of Inspired Oxygen Exam Narrative: GENERAL: Well-appearing, well-nourished, and in no acute distress. HEAD: Normocephalic, Laceration of the right forehead. EYES: PERRLA and EOMI. ENT: Nares clear, no rhinorrhea or epistaxis. Mucous membranes moist. NECK: Supple. CHEST: Clear to auscultation. No respiratory distress. HEART: Regular rate and rhythm. No murmur heard. Normal peripheral pulses. ABDOMEN: Soft, nontender, nondistended, normal active bowel sounds. EXTREMITIES: Normal range of motion. No edema. SKIN: Warm, dry, no rash. NEURO: No focal deficits. Alert and oriented x3. PSYCH: Normal mood and affect. H&P: Results Labs Labs: Short CBC 06/04/24 Range/Units 23:25 WBC 13.7 H (4.5-10.0) K/mm3 Hgb 10.9 L (12.0-15.0) g/dL Hct 32.3 L (37.0-47.0) % Plt Count 196 (150-375) k/mm3 BMP 06/04/24 23:25 Sodium 136 L Potassium 3.0 L Chloride 101 Carbon Dioxide 23 BUN 56 H D Creatinine 2.30 H Glucose 98 Calcium 9.8 Cardiac Enzymes 06/04/24 06/05/24 Range/Units 23:24 08:10 Troponin I 0.017 0.023 (0.000-0.034) ng/mL Liver Function 06/04/24 Range/Units 23:25 Total Bilirubin 1.0 (0.2-1.3) mg/dL AST 25 (14-36) U/L ALT 12 (6-35) U/L Alkaline Phosphatase 57 (38-126) U/L Albumin 3.6 (3.5-5.1) g/dL Urine 06/05/24 Range/Units 01:01 Urine Color Yellow (Yellow) Urine Appearance Cloudy H (Clear) Urine pH 5.5 (5.0-9.0) Ur Specific [place] 1.014 (1.001-1.035) Urine Protein Trace (Negative) mg/dL Urine Glucose (UA) Negative (Negative) mg/dL Assessment and Plan Assessment and plan (1) Acute kidney injury: Code(s): N17.9 - Acute kidney failure, unspecified Status: Acute (2) Acute UTI: Code(s): N39.0 - Urinary tract infection, site not specified Status: Acute (3) Essential (primary) hypertension: Code(s): I10 - Essential (primary) hypertension Status: Acute (4) Mixed hyperlipidemia: Code(s): E78.2 - Mixed hyperlipidemia Status: Acute (5) Nonrheumatic aortic (valve) stenosis: Code(s): I35.0 - Nonrheumatic aortic (valve) stenosis Status: Acute Plan patient is 88-year-old female who presents emergency department chief complaint of fall and head injury. Patient reports she lost her balance fell struck her forehead patient states she had no loss of consciousness but reports he is on a blood thinner. Patient reports that she has laceration to her forehead. The patient reports no pain in her arms or legs reports no back pain does report a bit of discomfort in her cervical spine . On ED evaluation she was hypotensive with blood pressure 81/44. Received some fluid boluses in the ER. Forehead laceration was sutured. Laboratory evaluation revealed WBC of 13.7 hemoglobin 10.9 potassium 3.0 creatinine up at 2.3 baseline around 1.3. Lactate was elevated at 2.1. Troponin was negative at 0.017 BNP 3060. Urinalysis was positive for UTI with urine WBC 20 1-50. She is admitted for further treatment Fall Head injury with laceration Head CT with no fracture in face and cervical spine. Hypotension UTI CHRIS on CKD stage 3 Continue IV fluid resuscitation Chest pain likely musculoskeletal troponin negative EKG with no acute changes. Serial troponin remains negative diarrhea will check for C diff DVT prophylaxis on Eliquis History of DVT on Eliquis Code status full code Hospitalist MIPS Advance Care Plan I have confirmed that the patient's Advanced Care Plan is present, code status is documented, or surrogate decision maker is listed in patient medical record.: Yes Medication Reconciliation I have utilized all available resources to obtain, update and review the patients current medications (includes all prescriptions, OTC, herbals, cannabis, and nutritional supplements).: Yes
[2024-06-05] MEDS: ACETAMINOPHEN 325 MG TABLET 650 MG PO (17:41)
[2024-06-05 18:35] LABS: Toxigenic C. Diff POSITIVE (NEGATIVE)
[2024-06-06] VITALS (14 sets, daily range): BP systolic 102–120; BP diastolic 38–60; PULSE 56–102; RESP 16–22; TEMP 36.5–37.1; O2SAT 97–100
[2024-06-06] MEDS: VANCOMYCIN HCL 125 MG ORAL CAPSULE PO ×4 (00:37→18:40)
[2024-06-06 05:17] LABS: Basophils Absolute Auto 0.1 K/mm3 (0.0-0.1); Basophils Percent Auto 0.4 % (0.2-1.2); Eosinophils Absolute Auto 0.1 K/mm3 (0-0.3); Eosinophils Percent Auto 0.7 % (0-4.4); Hematocrit 28.8 % (37.0-47.0); Hemoglobin 8.7 g/dL (12.0-15.0); Immature Granulocyte Absolute 0.09 K/mm3 (0.00-0.031); Immature Granulocyte Percent A 0.7 % (0-0.5); Lymphocytes Absolute Auto 1.24 K/mm3 (0.9-3.2); Mean Corpuscular HGB Conc 30.2 g/dl (32-36); Mean Corpuscular Hemoglobin 29.4 pg (26-34); Mean Corpuscular Volume 97.3 fl (80-100); Mean Platelet Volume 12.6 fl (7.4-10.4); Monocytes Absolute Auto 1.1 K/mm3 (0.1-0.6); Monocytes Percent Auto 7.8 % (2.6-8.5); Neutrophils Absolute Auto 11.2 K/mm3 (1.3-6.7); Neutrophils Percent Auto 81.4 % (45.5-73.1); Platelet Count Result 152 k/mm3 (150-375); Red Blood Count 2.96 M/mm3 (4.2-5.4); White Blood Count 13.7 K/mm3 (4.5-10.0)
[2024-06-06 05:34] LABS: Anion Gap 7 mmol/L (4-12); Blood Urea Nitrogen 51 mg/dL (7-17); Calcium 8.9 mg/dL (8.4-10.2); Carbon Dioxide 21 mmol/L (22-30); Chloride 107 mmol/L (98-107); Estimated CRCL calculation 26 ml/min; Estimated Glomerular Filt Rate 31; Glucose 89 mg/dL (65-110); Potassium 2.9 mmol/L (3.4-5.0); Sodium 135 mmol/L (137-145)
[2024-06-06 05:49] LABS: Acanthocytes 1+; Anisocytosis 1+; Hypochromasia 1+; Platelet Estimate Adequate (Adequate); Poikilocytosis 1+
[2024-06-06 05:51] LABS: Burr Cells 1+; Schistocytes None Seen
[2024-06-06] MEDS: SODIUM CHLORIDE 0.9% IV 1,000 ML 125 ML IV CONT ×3 (05:55→18:40)
[2024-06-06] MEDS: POTASSIUM CHLORIDE 20 MEQ ER TABLET 40 MEQ PO (09:14)
[2024-06-06] MEDS: APIXABAN 5 MG TABLET PO ×2 (09:14→18:40)
[2024-06-06] MEDS: SOLIFENACIN 5 MG TABLET 10 MG PO (09:15)
[2024-06-06] MEDS: OPTI-GEN TAB 1 TABLET PO (09:15)
[2024-06-06] MEDS: CHOLECALCIFEROL 1,000 UNITS TABLET 1000 UNITS PO (09:15)
[2024-06-06] MEDS: CALCIUM CARBONATE (TUMS) 500 MG (200 MG ELEMENTAL) 600 MG BY MOUTH (09:15)
--- NOTE | 2024-06-06 14:42 | PM.IMPN ---
Progress Note: A&P Assessment and Plan (1) Acute kidney injury: Code(s): N17.9 - Acute kidney failure, unspecified Status: Acute (2) Acute UTI: Code(s): N39.0 - Urinary tract infection, site not specified Status: Acute (3) Essential (primary) hypertension: Code(s): I10 - Essential (primary) hypertension Status: Acute (4) Mixed hyperlipidemia: Code(s): E78.2 - Mixed hyperlipidemia Status: Acute (5) Nonrheumatic aortic (valve) stenosis: Code(s): I35.0 - Nonrheumatic aortic (valve) stenosis Status: Acute Plan patient is 88-year-old female who presents emergency department chief complaint of fall and head injury. Patient reports she lost her balance fell struck her forehead patient states she had no loss of consciousness but reports he is on a blood thinner. Patient reports that she has laceration to her forehead. The patient reports no pain in her arms or legs reports no back pain does report a bit of discomfort in her cervical spine . On ED evaluation she was hypotensive with blood pressure 81/44. Received some fluid boluses in the ER. Forehead laceration was sutured. Laboratory evaluation revealed WBC of 13.7 hemoglobin 10.9 potassium 3.0 creatinine up at 2.3 baseline around 1.3. Lactate was elevated at 2.1. Troponin was negative at 0.017 BNP 3060. Urinalysis was positive for UTI with urine WBC 20 1-50. She is admitted for further treatment Fall Head injury with laceration Head CT with no fracture in face and cervical spine. Hypotension mild hold blood pressure medication UTI gram-negative rods in urine culture. Continue ceftriaxone CHRIS on CKD stage 3 Continue IV fluid resuscitation continues to improve Chest pain likely musculoskeletal troponin negative EKG with no acute changes. Serial troponin remains negative Diarrhea C diff came back positive on oral vancomycin. DVT prophylaxis on Eliquis History of DVT on Eliquis Code status full code Subjective Date/time seen: 06/06/24 14:42 Interval history: No overnight events. Blood pressure lowish. Diarrhea getting little former but still liquidy Review of Systems Review of Systems: All systems reviewed & are unremarkable except as noted in HPI and below Exam Narrative: GENERAL: Well-appearing, well-nourished, and in no acute distress. HEAD: Normocephalic, Laceration of the right forehead. EYES: PERRLA and EOMI. ENT: Nares clear, no rhinorrhea or epistaxis. Mucous membranes moist. NECK: Supple. CHEST: Clear to auscultation. No respiratory distress. HEART: Regular rate and rhythm. No murmur heard. Normal peripheral pulses. ABDOMEN: Soft, nontender, nondistended, normal active bowel sounds. EXTREMITIES: Normal range of motion. No edema. SKIN: Warm, dry, no rash. NEURO: No focal deficits. Alert and oriented x3. PSYCH: Normal mood and affect. Objective Data Vital Signs Vital Signs: Vital Signs - 24 hr 06/05/24 16:00 06/05/24 16:00 06/05/24 16:00 Temperature 99.9 F H Pulse Rate 100 94 Respiratory Rate 18 Blood Pressure 114/47 L Pulse Oximetry 99 Oxygen Delivery Room Air 06/05/24 17:41 06/05/24 18:00 06/05/24 21:14 Temperature 99.9 F H 98.9 F Pulse Rate 98 89 Respiratory Rate 18 Blood Pressure 90/44 L Pulse Oximetry 98 Oxygen Delivery 06/05/24 20:00 06/05/24 20:00 06/05/24 22:00 Temperature Pulse Rate 89 84 87 Respiratory Rate 18 Blood Pressure Pulse Oximetry 98 Oxygen Delivery Room Air 06/05/24 23:32 06/06/24 00:27 06/06/24 00:00 Temperature 98.8 F Pulse Rate 87 87 82 Respiratory Rate 18 18 Blood Pressure 91/45 L Pulse Oximetry 100 100 Oxygen Delivery Room Air 06/06/24 01:43 06/06/24 04:30 06/06/24 04:00 Temperature 97.7 F Pulse Rate 86 88 88 Respiratory Rate 18 18 Blood Pressure 113/38 L Pulse Oximetry 100 100 Oxygen Delivery Room Air 06/06/24 04:00 06/06/24 06:00 06/06/24 08:00 Temperature 97.7 F Pulse Rate 84 80 56 L Respiratory Rate 18 Blood Pressure 107/44 L Pulse Oximetry 100 Oxygen Delivery 06/06/24 08:00 06/06/24 08:00 06/06/24 10:00 Temperature Pulse Rate 84 58 L Respiratory Rate Blood Pressure Pulse Oximetry Oxygen Delivery Room Air 06/06/24 11:38 06/06/24 12:00 06/06/24 12:00 Temperature Pulse Rate 88 97 Respiratory Rate 22 H Blood Pressure 111/50 L Pulse Oximetry 98 Oxygen Delivery Room Air Intake/Output Intake/Output: Intake & Output 06/03/24 06/04/24 06/05/24 06/06/24 23:59 23:59 23:59 23:59 Intake Total 3645.8 1197.1 Balance 3645.8 1197.1 Meds/Results Medications: Active Medications Generic Name Dose Route Start Last Admin Trade Name Freq PRN Reason Stop Dose Admin Acetaminophen 650 mg 06/05/24 14:33 06/05/24 17:41 Acetaminophen 325 Mg Tablet PO 650 mg Q6H PRN Administration Mild Pain (1-3) or Fever Apixaban 5 mg 06/05/24 09:00 06/06/24 09:14 Apixaban 5 Mg Tablet PO 5 mg BID LYNETTE Administration Calcium Carbonate 600 mg 06/05/24 09:00 06/06/24 09:15 Calcium Carbonate (Tums) 500 Mg (200 Mg Elemental) BY MOUTH 600 mg DAILY LYNETTE Administration Sodium Chloride 1,000 mls @ 125 mls/hr 06/05/24 02:40 06/06/24 05:55 Normal Saline Iv IV CONT 125 mls/hr .Q8H LYNETTE Administration Ceftriaxone Sodium 1 gm in 50 mls @ 100 mls/hr 06/06/24 05:00 06/06/24 07:00 Rocephin 1 Gm/Ns 50 Ml IVPB Infused Q24H LYNETTE Infusion Morphine Sulfate 2 mg 06/05/24 08:25 06/05/24 08:58 Morphine Sulfate (*Crx) 2 Mg/Ml Inj IV PUSH 2 mg Q4H PRN Administration Pain Rated 7-10 Multivitamins/Minerals 1 tablet 06/05/24 09:00 06/06/24 09:15 Opti-Gen Tab PO 1 tablet QAM LYNETTE Administration Solifenacin 10 mg 06/05/24 09:00 06/06/24 09:15 Solifenacin 5 Mg Tablet PO 10 mg QAM LYNETTE Administration Vancomycin HCl 125 mg 06/06/24 00:00 06/06/24 11:51 Vancomycin Hcl 125 Mg Oral Capsule PO 06/15/24 18:01 125 mg Q6HR LYNETTE Administration Vitamin D 1,000 units 06/05/24 09:00 06/06/24 09:15 Cholecalciferol 1,000 Units Tablet PO 1,000 units DAILY LYNETTE Administration Radiology Results: ITS Impressions Head CT 06/05/24 07:52 Impression: No intracranial hemorrhage, mass, or acute infarct. Atrophy and chronic white matter changes, as above. Head/Cervical Spine/Facial Bones CT 06/05/24 07:53 Impression: No fracture is seen in the facial bones. No fracture or subluxation of the cervical spine. Degenerative spondylosis of the spine, as above. Chest X-Ray 06/05/24 10:32 Impression: Clear lungs. No change from prior exam. Labs Labs: Laboratory Results - last 24 hr 06/05/24 06/06/24 17:09 05:01 WBC 13.7 H RBC 2.96 L Hgb 8.7 L Hct 28.8 L MCV 97.3 D MCH 29.4 MCHC 30.2 L RDW 14.0 Plt Count 152 MPV 12.6 H Immature Gran % (Auto) 0.7 H Neut % (Auto) 81.4 H Lymph % (Auto) 9.0 L [place] % (Auto) 7.8 Eos % (Auto) 0.7 Baso % (Auto) 0.4 Lymph # (Auto) 1.24 [place] # (Auto) 1.1 H Eos # (Auto) 0.1 Baso # (Auto) 0.1 Abs Immat Gran (auto) 0.09 H Absolute Neuts (auto) 11.2 H Absolute Nucleated RBC 0.000 Nucleated RBC % 0.0 Platelet Estimate Adequate Hypochromasia 1+ Poikilocytosis 1+ Anisocytosis 1+ Daniel Cells 1+ Acanthocytes (Spur) 1+ Schistocytes None seen Sodium 135 L Potassium 2.9 L Chloride 107 Carbon Dioxide 21 L Anion Gap 7 BUN 51 H Creatinine 1.60 H Estim Creat Clear Calc 26 Estimated GFR 31 L Glucose 89 Calcium 8.9 C. difficile (PCR) Positive A*
--- NOTE | 2024-06-06 23:01 | P.PNCROSS_ITS ---
Event Note Event Note Event Note: Notified by RN that patient has significant extremity edema and remains on norm al saline at 125 mL/hr. I desired to stop IV fluids but BP is borderline low. Decided to give IV albumin to attempt to pull some third spaced fluid back into the intravascular space. NS stopped for now. Repeat labs are ordered for the morning. RN also notified of sepsis gonzaloe. Patient is on oral vancomycin for C-Diff. No new infectious source suspected. Increases vancomycin dose to 250 mg q6hr.
[2024-06-06] MEDS: ALBUMIN HUMAN 25% 25 GM/100 ML 200 ML IVPB (23:18)
[2024-06-06] MEDS: VANCOMYCIN HCL 125 MG ORAL CAPSULE 250 MG PO (23:18)
[2024-06-07] MEDS: VANCOMYCIN HCL 125 MG ORAL CAPSULE 250 MG PO ×4 (05:09→23:35)
[2024-06-07 06:00] VITALS: BP 120/56; PULSE 89; RESP 18; TEMP 36.4; O2SAT 100
[2024-06-07 06:34] LABS: Basophils Percent Auto 0.4 % (0.2-1.2); Eosinophils Absolute Auto 0.2 K/mm3 (0-0.3); Eosinophils Percent Auto 2.4 % (0-4.4); Hematocrit 27.5 % (37.0-47.0); Hemoglobin 8.8 g/dL (12.0-15.0); Immature Granulocyte Percent A 1.1 % (0-0.5); Immature Platelet Fraction Pct 9.3 % (0.9-11.2); Lymphocytes Absolute Auto 1.24 K/mm3 (0.9-3.2); Lymphocytes Percent Auto 13.1 % (18.3-44.2); Mean Corpuscular Hemoglobin 30.6 pg (26-34); Mean Corpuscular Volume 95.5 fl (80-100); Mean Platelet Volume 13.4 fl (7.4-10.4); Monocytes Absolute Auto 0.7 K/mm3 (0.1-0.6); Monocytes Percent Auto 7.7 % (2.6-8.5); Neutrophils Absolute Auto 7.1 K/mm3 (1.3-6.7); Neutrophils Percent Auto 75.3 % (45.5-73.1); Platelet Count Result 144 k/mm3 (150-375); Red Blood Count 2.88 M/mm3 (4.2-5.4); Red Cell Distribution Width 13.7 % (11.5-14.5); White Blood Count 9.5 K/mm3 (4.5-10.0)
[2024-06-07 06:44] LABS: Alanine Aminotransferase 10 U/L (6-35); Albumin Level 3.1 g/dL (3.5-5.1); Alkaline Phosphatase 54 U/L (38-126); Anion Gap 8 mmol/L (4-12); Aspartate Amino Transferase 22 U/L (14-36); Bilirubin,Total 0.6 mg/dL (0.2-1.3); Blood Urea Nitrogen 42 mg/dL (7-17); Calcium 9.3 mg/dL (8.4-10.2); Carbon Dioxide 21 mmol/L (22-30); Chloride 107 mmol/L (98-107); Estimated CRCL calculation 35 ml/min; Estimated Glomerular Filt Rate 43; Glucose 86 mg/dL (65-110); Magnesium 2.2 mg/dL (1.6-2.3); Potassium 3.1 mmol/L (3.4-5.0); Sodium 136 mmol/L (137-145)
[2024-06-07 08:00] VITALS: O2SAT 100
[2024-06-07] MEDS: SOLIFENACIN 5 MG TABLET 10 MG PO (09:26)
[2024-06-07] MEDS: POTASSIUM CHLORIDE 20 MEQ ER TABLET 40 MEQ PO (09:26)
[2024-06-07] MEDS: APIXABAN 5 MG TABLET PO ×2 (09:26→17:07)
[2024-06-07] MEDS: OPTI-GEN TAB 1 TABLET PO (09:26)
[2024-06-07] MEDS: CHOLECALCIFEROL 1,000 UNITS TABLET 1000 UNITS PO (09:26)
[2024-06-07] MEDS: CALCIUM CARBONATE (TUMS) 500 MG (200 MG ELEMENTAL) 600 MG BY MOUTH (09:27)
--- NOTE | 2024-06-07 12:38 | P.PNIM_ITS ---
Progress Note: A&P Assessment and Plan (1) Acute kidney injury: Code(s): N17.9 - Acute kidney failure, unspecified Status: Acute (2) Acute UTI: Code(s): N39.0 - Urinary tract infection, site not specified Status: Acute (3) Essential (primary) hypertension: Code(s): I10 - Essential (primary) hypertension Status: Acute (4) Mixed hyperlipidemia: Code(s): E78.2 - Mixed hyperlipidemia Status: Acute (5) Nonrheumatic aortic (valve) stenosis: Code(s): I35.0 - Nonrheumatic aortic (valve) stenosis Status: Acute Plan patient is 88-year-old female who presents emergency department chief complaint of fall and head injury. Patient reports she lost her balance fell struck her forehead patient states she had no loss of consciousness but reports he is on a blood thinner. Patient reports that she has laceration to her forehead. The patient reports no pain in her arms or legs reports no back pain does report a bit of discomfort in her cervical spine . On ED evaluation she was hypotensive with blood pressure 81/44. Received some fluid boluses in the ER. Forehead laceration was sutured. Laboratory evaluation revealed WBC of 13.7 hemoglobin 10.9 potassium 3.0 creatinine up at 2.3 baseline around 1.3. Lactate was elevated at 2.1. Troponin was negative at 0.017 BNP 3060. Urinalysis was positive for UTI with urine WBC 20 1-50. She is admitted for further treatment Fall Head injury with laceration Head CT with no fracture in face and cervical spine. Hypotension mild hold blood pressure medication. Blood pressure improved with IV hydration. UTI gram-negative rods in urine culture. Continue ceftriaxone. Urine culture growing E coli pansensitive will switch to oral antibiotics today CHRIS on CKD stage 3 Continue IV fluid resuscitation continues to improve and back to baseline. Stop IV fluids. Replace potassium. Chest pain likely musculoskeletal troponin negative EKG with no acute changes. Serial troponin remains negative Diarrhea C diff came back positive on oral vancomycin. DVT prophylaxis on Eliquis History of DVT on Eliquis Code status full code Subjective Date/time seen: 06/07/24 12:38 Interval history: No overnight events. Feels better. Off IV fluids now. Still has loose stools. Review of Systems Review of Systems: All systems reviewed & are unremarkable except as noted in HPI and below Exam Narrative: GENERAL: Well-appearing, well-nourished, and in no acute distress. HEAD: Normocephalic, Laceration of the right forehead. EYES: PERRLA and EOMI. ENT: Nares clear, no rhinorrhea or epistaxis. Mucous membranes moist. NECK: Supple. CHEST: Clear to auscultation. No respiratory distress. HEART: Regular rate and rhythm. No murmur heard. Normal peripheral pulses. ABDOMEN: Soft, nontender, nondistended, normal active bowel sounds. EXTREMITIES: Normal range of motion. No edema. SKIN: Warm, dry, no rash. NEURO: No focal deficits. Alert and oriented x3. PSYCH: Normal mood and affect. Objective Data Vital Signs Vital Signs: Vital Signs - 24 hr 06/06/24 14:00 06/06/24 16:00 06/06/24 16:00 Temperature 97.9 F Pulse Rate 83 98 Respiratory Rate 16 Blood Pressure 120/54 L Pulse Oximetry 97 Oxygen Delivery Room Air 06/06/24 16:28 06/06/24 22:00 06/06/24 20:00 Temperature 98.7 F Pulse Rate 65 102 H Respiratory Rate 18 Blood Pressure 102/60 Pulse Oximetry 97 Oxygen Delivery Room Air 06/07/24 06:00 06/07/24 08:00 06/07/24 09:16 Temperature 97.6 F Pulse Rate 89 Respiratory Rate 18 Blood Pressure 120/56 L Pulse Oximetry 100 100 Oxygen Delivery Room Air Room Air Intake/Output Intake/Output: Intake & Output 06/04/24 06/05/24 06/06/24 06/07/24 23:59 23:59 23:59 23:59 Intake Total 3645.8 3307.9 340 Balance 3645.8 3307.9 340 Meds/Results Medications: Active Medications Generic Name Dose Route Start Last Admin Trade Name Freq PRN Reason Stop Dose Admin Acetaminophen 650 mg 06/05/24 14:33 06/05/24 17:41 Acetaminophen 325 Mg Tablet PO 650 mg Q6H PRN Administration Mild Pain (1-3) or Fever Apixaban 5 mg 06/05/24 09:00 06/07/24 09:26 Apixaban 5 Mg Tablet PO 5 mg BID LYNETTE Administration Calcium Carbonate 600 mg 06/05/24 09:00 06/07/24 09:27 Calcium Carbonate (Tums) 500 Mg (200 Mg Elemental) BY MOUTH 600 mg DAILY LYNETTE Administration Ceftriaxone Sodium 1 gm in 50 mls @ 100 mls/hr 06/06/24 05:00 06/07/24 05:09 Rocephin 1 Gm/Ns 50 Ml IVPB 50 mls/hr Q24H LYNETTE Administration Morphine Sulfate 2 mg 06/05/24 08:25 06/05/24 08:58 Morphine Sulfate (*Crx) 2 Mg/Ml Inj IV PUSH 2 mg Q4H PRN Administration Pain Rated 7-10 Multivitamins/Minerals 1 tablet 06/05/24 09:00 06/07/24 09:26 Opti-Gen Tab PO 1 tablet QAM LYNETTE Administration Solifenacin 10 mg 06/05/24 09:00 06/07/24 09:26 Solifenacin 5 Mg Tablet PO 10 mg QAM LYNETTE Administration Vancomycin HCl 250 mg 06/07/24 00:00 06/07/24 11:44 Vancomycin Hcl 125 Mg Oral Capsule PO 06/15/24 18:01 250 mg Q6HR LYNETTE Administration Vitamin D 1,000 units 06/05/24 09:00 06/07/24 09:26 Cholecalciferol 1,000 Units Tablet PO 1,000 units DAILY LYNETTE Administration Radiology Results: ITS Impressions Head CT 06/05/24 07:52 Impression: No intracranial hemorrhage, mass, or acute infarct. Atrophy and chronic white matter changes, as above. Head/Cervical Spine/Facial Bones CT 06/05/24 07:53 Impression: No fracture is seen in the facial bones. No fracture or subluxation of the cervical spine. Degenerative spondylosis of the spine, as above. Chest X-Ray 06/05/24 10:32 Impression: Clear lungs. No change from prior exam. Labs Labs: Laboratory Results - last 24 hr 06/07/24 05:59 WBC 9.5 RBC 2.88 L Hgb 8.8 L Hct 27.5 L MCV 95.5 MCH 30.6 MCHC 32.0 RDW 13.7 Plt Count 144 L MPV 13.4 H Immature Gran % (Auto) 1.1 H Neut % (Auto) 75.3 H Lymph % (Auto) 13.1 L [place] % (Auto) 7.7 Eos % (Auto) 2.4 Baso % (Auto) 0.4 Lymph # (Auto) 1.24 [place] # (Auto) 0.7 H Eos # (Auto) 0.2 Baso # (Auto) 0.0 Abs Immat Gran (auto) 0.10 H Absolute Neuts (auto) 7.1 H Absolute Nucleated RBC 0.000 Nucleated RBC % 0.0 % Immature Plt Fraction 9.3 Sodium 136 L Potassium 3.1 L Chloride 107 Carbon Dioxide 21 L Anion Gap 8 BUN 42 H Creatinine 1.20 H Estim Creat Clear Calc 35 Estimated GFR 43 L Glucose 86 Calcium 9.3 Magnesium 2.2 Total Bilirubin 0.6 AST 22 ALT 10 Alkaline Phosphatase 54 Total Protein 6.0 L Albumin 3.1 L
[2024-06-07 14:00] VITALS: BP 120/55; PULSE 82; RESP 18; TEMP 36.9; O2SAT 100
[2024-06-07] MEDS: CEPHALEXIN 500 MG CAPSULE PO (21:12)
[2024-06-07 21:15] VITALS: BP 103/52; PULSE 86; RESP 18; TEMP 37.4; O2SAT 97
[2024-06-08] MEDS: VANCOMYCIN HCL 125 MG ORAL CAPSULE 250 MG PO ×3 (05:07→17:20)
[2024-06-08 06:00] VITALS: BP 118/54; PULSE 81; RESP 18; TEMP 36.6; O2SAT 97
[2024-06-08 07:12] LABS: Basophils Percent Auto 0.5 % (0.2-1.2); Eosinophils Absolute Auto 0.2 K/mm3 (0-0.3); Eosinophils Percent Auto 3.1 % (0-4.4); Hematocrit 29.7 % (37.0-47.0); Hemoglobin 9.4 g/dL (12.0-15.0); Immature Granulocyte Absolute 0.16 K/mm3 (0.00-0.031); Lymphocytes Absolute Auto 1.18 K/mm3 (0.9-3.2); Lymphocytes Percent Auto 15.1 % (18.3-44.2); Mean Corpuscular HGB Conc 31.6 g/dl (32-36); Mean Corpuscular Hemoglobin 29.6 pg (26-34); Mean Corpuscular Volume 93.4 fl (80-100); Mean Platelet Volume 12.8 fl (7.4-10.4); Monocytes Absolute Auto 0.7 K/mm3 (0.1-0.6); Monocytes Percent Auto 9.1 % (2.6-8.5); Neutrophils Absolute Auto 5.5 K/mm3 (1.3-6.7); Neutrophils Percent Auto 70.2 % (45.5-73.1); Platelet Count Result 190 k/mm3 (150-375); Red Blood Count 3.18 M/mm3 (4.2-5.4); Red Cell Distribution Width 13.7 % (11.5-14.5); White Blood Count 7.8 K/mm3 (4.5-10.0)
[2024-06-08 07:33] LABS: Alanine Aminotransferase 12 U/L (6-35); Albumin Level 2.9 g/dL (3.5-5.1); Alkaline Phosphatase 59 U/L (38-126); Anion Gap 4 mmol/L (4-12); Aspartate Amino Transferase 26 U/L (14-36); Bilirubin,Total 0.5 mg/dL (0.2-1.3); Blood Urea Nitrogen 34 mg/dL (7-17); Carbon Dioxide 24 mmol/L (22-30); Chloride 107 mmol/L (98-107); Estimated CRCL calculation 41 ml/min; Estimated Glomerular Filt Rate 53; Glucose 94 mg/dL (65-110); Potassium 3.7 mmol/L (3.4-5.0); Sodium 135 mmol/L (137-145)
[2024-06-08] MEDS: OPTI-GEN TAB 1 TABLET PO (07:49)
[2024-06-08] MEDS: CHOLECALCIFEROL 1,000 UNITS TABLET 1000 UNITS PO (07:49)
[2024-06-08] MEDS: APIXABAN 5 MG TABLET PO ×2 (07:49→17:20)
[2024-06-08] MEDS: SOLIFENACIN 5 MG TABLET 10 MG PO (07:49)
[2024-06-08] MEDS: CEPHALEXIN 500 MG CAPSULE PO (07:49)
[2024-06-08] MEDS: CALCIUM CARBONATE (TUMS) 500 MG (200 MG ELEMENTAL) 600 MG BY MOUTH (07:49)
[2024-06-08 08:00] VITALS: O2SAT 97
[2024-06-08 14:00] VITALS: BP 111/64; PULSE 86; RESP 18; TEMP 36.6; O2SAT 100
--- NOTE | 2024-06-08 17:03 | PM.DS ---
DS: Admitting Diagnosis Discharge Date 06/08/2024 Admitting Diagnosis Fall DS: Discharge Diagnosis Discharge Diagnosis (1) Acute kidney injury: Code(s): N17.9 - Acute kidney failure, unspecified Status: Acute (2) Acute UTI: Code(s): N39.0 - Urinary tract infection, site not specified Status: Acute (3) Essential (primary) hypertension: Code(s): I10 - Essential (primary) hypertension Status: Acute (4) Mixed hyperlipidemia: Code(s): E78.2 - Mixed hyperlipidemia Status: Acute (5) Nonrheumatic aortic (valve) stenosis: Code(s): I35.0 - Nonrheumatic aortic (valve) stenosis Status: Acute Plan Discharge Home on Self Care DS: Summary Hospital Course Reason for hospitalization: Fall Hospital Course: Patient presented to the ER after a fall incident and head injury. Patient reported she lost her balance and fell, striking her forehead. patient reported no loss of consciousness but also reported she is on a blood thinner. Patient was noted with a laceration to her forehead that was sutured per ER physician. She was noted with be hypotensive with initial BP 81/44 on presentation and was given some fluid bolus in ER, with improvement in BP. She reported no pain in her arms or legs, no back pain, but had a bit of discomfort in her cervical spine . Laboratory evaluation revealed WBC of 13.7 hemoglobin 10.9 potassium 3.0 creatinine up at 2.3 baseline around 1.3. Lactate was elevated at 2.1. Troponin was negative at 0.017 BNP 3060. Urinalysis was positive for UTI with urine WBC 20 1-50. She is admitted for further treatment. - Fall and Head Injury with Laceration: Head CT with no fracture in face and cervical spine. Hypotension- All BP medications held inpatient, blood pressure improved with IV hydration. Will defer resumption of BP meds to PCP. E.Coli UTI- Pansensitive E.Coli or urine culture with Negative blood cultures. - Patient treated with ceftriaxone IV and later PO Cephalexin inpatient. Discharged on Cephalexin to complete abc treatment. CHRIS on CKD stage 3- Suspected to be pre-renal secondary to poor PO fluid intake and diuresis with Lasix. - IV fluid resuscitation and renal function improved and was back to baseline prior to discharge. Electrolytes were corrected as well. - Chest pain- Likely musculoskeletal; Troponin negative on admission, with no acute EKG changes. Serial troponin were negative. - Diarrhea - Patient had been on Clindamycin outpatient recently for possible infection on one of her fingers. Pt with diarrhea episodes inpatient and C diff came back. - Patient was treated with oral vancomycin that she will complete at home. Diarrhea episodes improved significantly with treatment. 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 Code status - Full code. Patient worked with PT/OT inpatient and was stand-by assist. Skilled PT/OT was suggested for conditioning but pt and family declined, stating pt has sufficient support at home and they elected for home discharge. Patient was medically stable for discharge with no acute distress noted or reported prior to discharge. Status at Discharge Functional status at discharge: uses cane/walker Overall status at discharge: patient is progressing back to baseline Time Spent with Patient Time attestation: Total time spent providing and/or coordinating discharge services: Time spent: Greater than 30 minutes Exam Narrative: GENERAL: Well-appearing, well-nourished, and in no acute distress. HEAD: Normocephalic, Laceration of the right forehead. EYES: PERRL and EOMI. ENT: Nares clear, no rhinorrhea or epistaxis. Mucous membranes moist. NECK: Supple. CHEST: Clear to auscultation. No respiratory distress. HEART: Regular rate and rhythm. Grade 2-3 mid-sternal murmurs. Normal peripheral pulses. ABDOMEN: Soft, nontender, nondistended, normal active bowel sounds. EXTREMITIES: Normal range of motion. No edema. SKIN: Warm, dry, no rash. NEURO: No focal deficits. Alert and oriented x3. PSYCH: Normal mood and affect. DS: Data Data Completed and Pending Labs on day of discharge: Labs from last 24 hours 06/08/24 07:02 WBC 7.8 RBC 3.18 L Hgb 9.4 L Hct 29.7 L MCV 93.4 MCH 29.6 MCHC 31.6 L RDW 13.7 Plt Count 190 MPV 12.8 H Immature Gran % (Auto) 2.0 H Neut % (Auto) 70.2 Lymph % (Auto) 15.1 L Jackson % (Auto) 9.1 H Eos % (Auto) 3.1 Baso % (Auto) 0.5 Lymph # (Auto) 1.18 Jackson # (Auto) 0.7 H Eos # (Auto) 0.2 Baso # (Auto) 0.0 Abs Immat Gran (auto) 0.16 H Absolute Neuts (auto) 5.5 Absolute Nucleated RBC 0.000 Nucleated RBC % 0.0 Sodium 135 L Potassium 3.7 Chloride 107 Carbon Dioxide 24 Anion Gap 4 BUN 34 H Creatinine 1.00 Estim Creat Clear Calc 41 Estimated GFR 53 L Glucose 94 Calcium 9.0 Magnesium 2.0 Total Bilirubin 0.5 AST 26 ALT 12 Alkaline Phosphatase 59 Total Protein 6.0 L Albumin 2.9 L Preliminary micro results at discharge 06/05/24 08:10 Blood Culture - Preliminary Blood 06/05/24 07:37 Blood Culture - Preliminary Blood Discharge Plan Discharge Attending physician on discharge: Miah Billy Discharging Clinician: Chiquita Trevizo Anticipated Discharge Date/Time: 06/08/24 17:09 Patient Disposition: Home, Self-Care Activity: as tolerated Diet: heart healthy Patient Instructions: Antibiotic Form, Apixaban (By mouth), Urinary Tract Infection in Women (DC), C. Diff (Clostridioides Difficile) Infection (DC) Stand Alone Forms: General Discharge Information Follow-up/Referrals: Leisa Otero, [employer] [Primary Care Provider] - 1 Week Discharge Medications: New cephalexin 500 mg Capsule 500 mg PO Q12HR Qty: 8 0RF vancomycin 250 mg capsule 250 mg PO Q6HR Qty: 33 0RF Continued cholecalciferol (vitamin D3) 25 mcg (1,000 unit) capsule 25 mcg PO DAILY calcium carbonate [Calcium 600] 600 mg calcium (1,500 mg) tablet 600 mg PO DAILY PreserVision AREDS-2 250-90-40-1 mg capsule 1 tablet PO DAILY Eliquis 5 mg tablet 5 mg PO BID Qty: 180 1RF solifenacin [Vesicare] 10 mg tablet 10 mg PO DAILY Qty: 90 1RF Discontinued lisinopril 20 mg tablet 20 mg PO DAILY Qty: 90 1RF Patient Comments: Pt has not picked this up from the pharmacy yet. furosemide 40 mg tablet 40 mg PO QAM Qty: 90 1RF Date of admission: 06/07/24 13:30 Primary Care Provider: Leisa Otero Admitting Provider: Gianna Davalos Attending physician on admission: Gianna Davalos Condition: Stable Quality VTE Prophylaxis VTE prophylaxis: pharmacologic ordered Hospitalist MIPS Heart Failure (Exclusion) Patient has history of Heart Transplant or Left Ventricular Assistive Device?: No IF YES, STOP HERE Heart Failure (Qualifier) Patient has current or prior documentation of LVEF less than or equal to 40%, or mod/servere depressed LVSF?: No IF NO, STOP HERE
== END 2024-06-08 18:08 | disposition home or self-care (01) | DRG 690 ==
LOC: ANHED 06-05 02:41 → ANHIMU 06-05 05:22 → ANH3MEDSUR 06-06 16:02
PROVIDERS: Internal Medicine; Admitting Provider Internal Medicine; Emergency Provider Emergency Medicine; PCP Nurse Practitioner; Visit Provider Nurse Practitioner Adult Health
DX: N39.0 Urinary tract infection, site not specified (principal); N17.9 Acute kidney failure, unspecified; A04.72 Enterocolitis due to Clostridium difficile, not specified as recurrent; S01.81XA Laceration without foreign body of other part of head, initial encounter; W19.XXXA Unspecified fall, initial encounter; B96.20 Unspecified Escherichia coli [E. coli] as the cause of diseases classified elsewhere; E78.2 Mixed hyperlipidemia; I95.9 Hypotension, unspecified; I12.9 Hypertensive chronic kidney disease with stage 1 through stage 4 chronic kidney disease, or unspecified chronic kidney disease; I35.0 Nonrheumatic aortic (valve) stenosis; N18.30 Chronic kidney disease, stage 3 unspecified; R07.89 Other chest pain; Z79.01 Long term (current) use of anticoagulants; Z90.49 Acquired absence of other specified parts of digestive tract; Z86.718 Personal history of other venous thrombosis and embolism; Z88.0 Allergy status to penicillin; Z98.42 Cataract extraction status, left eye; Z98.41 Cataract extraction status, right eye
CPT/HCPCS: 12011; 36415; 70450; 70486; 71045; 72125; 80048; 80053; 81001; 83605; 83735; 83880; 84100; 84145; 84484; 85025; 85055; 87040; 87086; 87186; 87493; 93005; 96361; 96365; 96366; 96368; 96375; 97161; 97165; 97530; 97535; 99285; A9270; G0378; J0696; J2270; J3480; J7030; P9047